=== PATIENT | female | born 2000 | race Caucasian/White ===

== ENCOUNTER 2024-06-01 08:57 | Outpatient (OUT) | payer OTHER, SELFPAY ==
--- NOTE | 2024-06-01 09:09 | ECG_ITS ---
[facility] Test Date: 2024-06-01 Pat Name: JOS TAYLOR Department: Room: - Gender: Female Cushion Former: : 2000 Requested By: ESTEFANIA ABDI Order Number: [id number] Kelly MD: NATALIYA JOYCE M.D. Measurements Intervals [place] Rate: 66 P: 11 WA: 148 QRS: 7 QRSD: 98 T: 3 QT: 389 QTc: 409 Interpretive Statements SINUS RHYTHM INCOMPLETE RIGHT BUNDLE BRANCH BLOCK [90+ ms QRS DURATION, TERMINAL R IN V1/V2, 40+ ms S IN I/aVL/V4/V5/V6] No previous ECG available for comparison Electronically Signed On 06-01-2024 19:08:50 EDT by NATALIYA JOYCE M.D.
== END 2024-06-01 08:58 | disposition home or self-care (01) ==
LOC: PST 09:02
PROVIDERS: PCP Family Medicine; Visit Provider Obstetrics & Gynecology
DX: Z01.810 Encounter for preprocedural cardiovascular examination (principal); R10.2 Pelvic and perineal pain; N80.9 Endometriosis, unspecified
CPT/HCPCS: 93005

== ENCOUNTER 2024-06-17 10:38 | Day surgery (SDC) | payer OTHER, SELFPAY ==
[2024-06-01 09:38] VITALS: BP 121/87; PULSE 75; TEMP 36.3; O2SAT 99; BMI 32.8
[2024-06-17] VITALS (8 sets, daily range): BP systolic 102–130; BP diastolic 67–87; PULSE 68–95; TEMP 36.1–36.6; O2SAT 96–99; BMI 32.8
[2024-06-17 10:55] LABS: Basophils Percent Auto 0.5 % (0.2-2.0); Eosinophils Absolute Auto 0.1 10^3/uL (0.0-0.7); Eosinophils Percent Auto 1.4 % (0.9-7.0); Hematocrit 46.5 % (36.0-48.0); Immature Granulocytes Abs Auto 0.03 10^3/uL (0.00-0.03); Immature Granulocytes Pct Auto 0.4 % (0.0-0.5); Lymphocytes Absolute Auto 2.1 10^3/uL (1.2-3.8); Lymphocytes Percent Auto 25.1 % (20.5-60.0); Mean Corpuscular HGB Conc 34.4 g/dL (29.9-35.2); Mean Corpuscular Hemoglobin 30.8 pg (26.7-34.0); Mean Corpuscular Volume 89.4 fL (81.0-99.0); Monocytes Absolute Auto 0.5 10^3/uL (0.3-0.8); Monocytes Percent Auto 6.3 % (1.7-12.0); Neutrophils Absolute Auto 5.6 10^3/uL (1.4-6.5); Neutrophils Percent Auto 66.3 % (43.0-75.0); Platelet Count 293 10^3/uL (150-450); Red Cell Distribution Width 11.7 % (11.0-15.0); White Blood Count 8.4 10^3/uL (4.0-11.0)
--- OUTSIDE RECORDS SUMMARY | 2024-06-17 10:59 | XMS_ITS ---
Author Name Auto Generated Organization OHIP Care Team Providers Care Avid Editor Name Role Phone LINDA SMITH Attending Unavailable ESTEFANIA ABDI Attending Unavailable LINDA SMITH Attending Unavailable LINDA SMITH Attending Unavailable Torrie Peres Primary Care Unavailable Jewel Cunha Admitting Unavailable Jewel Cunha Attending Unavailable Linda Smith Admitting Unavailable Linda Smith Attending Unavailable Torrie Peres Primary Care Unavailable TORRIE PERES Primary Care Unavailab le ROSALINA PERESRA D Referring Unavailab le BOB, MAICOL B Attending Unavailable BOB, MAICOL B Attending Unavailable BBO, MAICOL B Referring Unavailable TORRIE PERES Primary Care Unavailab le PROBLEMS DATE TYPE CONDITION / CODE ATTENDING STATUS TITO RCE 12/18/2023 Unknown Pelvic and perin eal pain / R10.2(ICD-10) Linda Smith [facility] 09/13/2023 Unknown Other ovarian cy st, left side / N83.292(ICD-10) Jewel Cunha [facility] PROCEDURES No Procedure Records Found RESULTS N-TERMINAL PRO B-TYPE NATRIURETIC PEPTIDE Collected: 06/16/2024 11:45 AM Status: F Source: [facility] REPOSITORY Order Comment: Release to me tient->Automatic TYPE CODE TESTS RESULT OUT OF RANGE REFERENCE UNITS LAB 00141-2 NT pro B-type Natriuretic Peptide 116.0 Unknown 0.0-125.0 pg/mL LIPID PANEL Collected: 06/16/2024 11:45 AM Status: F Source: [facility] REPOSITORY Order Comment: Release to me tient->Automatic TYPE CODE TESTS RESULT OUT OF RANGE REFERENCE UNITS LAB 2093-3 Cholesterol 202 High <=189 mg/dL Result Comment: Acceptable ( mg/dL): <190 Borderline-High (mg/dL): 190-224 High (mg/dL): > or = 225 Reference: Recommendations of the [place] [employer] (Pediatrics, Feb 2011, 128 (Supplement 5) Q965-M656; DOI: 10.1542/peds.2009-2107C). Verified By: [id number] LAB 2571-8 Triglyceride 68 Unknown <=114 mg/dL Result Comment: Acceptable ( mg/dL): <115 Borderline-High (mg/dL): 115-149 High (mg/dL): > or = 150 Verified By: [id number] LAB 2085-9 HDL Chol 65 Unknown MG/DL Result Comment: Low (mg/dL): <40 Borderline-Low (mg/dL): 40-45 Acceptable (mg/dL): >45 Verified By: [id number] LAB 06728-9 LDL Cholesterol 123 High <=119 mg/dL Result Comment: Verified By: [id number] LAB 59017-9 Non-HDL Cholesterol 137 Unknown <=149 mg/dL Result Comment: Verified By: [id number] COMPREHENSIVE METABOLIC PANEL Collected : 06/16/2024 11:45 AM Status: F Source: [facility] REPOSITORY Order Comment: Release to me whitney->Automatic TYPE CODE TESTS RESULT OUT OF RANGE REFERENCE UNITS LAB 2951-2 Sodium 140 Unknown 133-145 mmol/L Result Comment: Verified By: [id number] LAB 79938-1 POTASSIUM 4.6 Unknown 3.3-5.1 mmol/L Result Comment: Verified By: [id number] LAB 2075-0 CHLORIDE 103 Unknown 96-108 mmol/L Result Comment: Verified By: [id number] LAB 1962-0 CARBON DIOXIDE 28.8 Unknown 22.0-29.0 mmol/L Result Comment: Verified By: [id number] LAB 2345-7 GLUCOSE 92 Unknown 70-99 mg/dL Result Comment: Criteria for Diagnosis of Diabetes: Fasting Specimen (no caloric intake for at least 8 hours): <100 mg/dL Normal 100-125 mg/dL Increased risk for Diabetes >125 mg/dL Diagnostic for Diabetes Random Glucose (any time of day without regard to last meal): > or = 200 mg/dL plus Classic Symptoms of Diabetes Verified By: [id number] LAB 1975-2 BILI,TOTAL 0.5 Unknown <=1.0 mg/dL Result Comment: Verified By: [id number] LAB 15158-0 AST 21 Unknown <=31 U/L Result Comment: Verified By: [id number] LAB 1743-4 ALT 19 Unknown <=34 U/L Result Comment: Verified By: [id number] LAB 6768-6 Alkaline Phosphatase 41 Unknown 35-104 U/L Result Comment: Verified By: [id number] LAB 55854-9 CALCIUM 9.7 Unknown 7.6-11.0 mg/dL Result Comment: Verified By: [id number] LAB 2885-2 Protein, Total 7.3 Unknown 5.9-8.4 g/dL Result Comment: Verified By: [id number] LAB 47918-9 Albumin 4.3 Unknown 3.5-5.0 g/dL Result Comment: Verified By: [id number] LAB 2160-0 Creatinine 0.81 Unknown 0.50-1.00 mg/dL Result Comment: Verified By: [id number] LAB 80833-9 eGFR >90 Unknown >=60 mL/min/1 .73 m2 LAB 3094-0 BUN 13 Unknown 4-19 mg/dL Result Comment: Verified By: [id number] PROGRESS NOTE Observed: 06/16/2024 10:00 AM Status: COMPLETED Source: [facility] REPOSITORY Adult Congenital Heart Disea se Referring Provider: Torrie Peres,* Date: 06/16/2024 Original Diagnosis/History of Present Illness: Jos Beckett is a 23 y.o. 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 By report, she also has a functionally bicuspid aortic valve. She has not required any cardiac interventions nor required cardiac medications since infancy. She does have a history of premature ventricular complexes, with a ~ 1% PVC burden on a Holter in 2022. Jos was previously followed in Pediatric Cardiology clinic by my colleague, Dr JR Dudley. Overall, she has had normal growth and development and no limitations from her cardiac disease. She did have some palpitations at the time her PVCs were identified, but these have not recurred. She has no history of exertional chest pain, unexplained shortness of breath, near syncope or syncope. She recently had a rupture of an ovarian cyst that has resulted in significant pain and limitations to her activity; she will be having diagnostic laparoscopy and lysis of adhesions tomorrow. Prior to that, she exercised regularly and had normal exercise tolerance. 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 History of migraine headaches. 2) Hand surgery 2020. Ruptured ovarian cyst 2023. 3) No known drug allergies. 4) Cardiac family history is notable for: great grandfather had aortic aneurysm; grandfather suddenly during sleep, was in his 30s. 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 VITAL SIGNS: BP 115/81 R arm 108/67 R leg Pulse 64 Resp 16 Ht 159.3 cm Wt 79.7 kg SpO2 100% BMI 31.41 kg/m 2. CARDIOVASCULAR: A) no jugular venous distention B) normal precordial activity, regular rate and rhythm with no ectopy or gallop audible C) normal s1, normally splitting s2; no diastolic murmurs; no clicks or rubs 3. CHEST AND RESPIRATORY: normal respiratory effort, lungs clear to auscultation; surgical incision not examined 4. ABDOMEN: limited exam due to pain 5. EXTREMITIES: no clubbing cyanosis or edema; warm and well perfused 6. GENERAL: well appearing 7. HEENT: no dysmorphic features; no central cyanosis or pallor; no facial edema 8. NEURO/PSYCH: grossly symmetrical tone and strength, no gross deficits noted, normal speech, behavior and affect Studies: EKG 06/16/2024: normal sinus rhythm at a rate of 67 bpm; left axis deviation; rSR' in V1/V2 Echocardiogram 06/16/2024: 1. Aortic valve: The valve is functionally bicuspid. There is mild regurgitation. 2. Systemic arteries: The isthmus narrows in the descending aorta to .96 cm; and the Doppler shows diastolic runoff. The defending pulsatility is diminished. 3. S/p coarctation surgery residual peak gradient 16-20 mmHg 4. Left ventricle: The cavity size is normal. Wall thickness is normal. The ejection fraction (MM, Teichholz) is 63%. 5. Redundant mitral valve chordae with trace mitral valve regurgitation. 24 hour Holter monitor: to be done after surgery Impression: 1) Coarctation of the aorta, s/p repair, no aortic obstruction or edwin re-coarctation, mild residual gradient stable at < 20% 2) Bicuspid aortic valve, mild regurgitation; no aortic root enlargement; no left ventricular dilatation or dysfunction 3) History of premature ventricular complexes, none seen or auscultated today 4) No clinical heart failure, NYHA Class I Classification per 2018 ACC ACHD guidelines: IIA CHD anatomy: II, moderate complexity CHD physiology: A (no hemodynamic or anatomic sequelae) Plan: No cardiac contraindications to general anesthesia or surgery Cardiac surgery/re-intervention: not indicated Cardiac medications: none indicated Additional cardiac testin hour Holter monitor (schedule after her surgery); blood tests (NTproBNP, comp metabolic, lipid panel Cardiac restrictions to exercise, sports or employment: none SBE prophylaxis not indicated Additional consultation: not indicated Next follow up visit: 2-[address] scan within next 3-5 years. Maicol Chandler M.D. Adult Congenital Heart Disease, [facility], [facility] Counseling and/or coordination of care was greater than 55 minutes which is more than 50% of the total time of 70 minutes spent on the encounter. US PELVIC COMPLETE Observed: 12/18/2023 11:01 AM Status: COMPLETED Source: [facility] REPOSITORY [facility] [place] [address] Ultrasound Report Signed Patient: Jos Beckett MR#: [id number] : 2000 Acct:[id number] Age/Sex: 23 / F ADM Date: 12/18/23 Loc: Room: Type: [facility] Attending Dr: Linda Smith PA-C Ordering Provider: Linda BRAND Date of Service: 12/18/23 US/US pelvic complete: Z87.42 ([id number]) US/US transvaginal: Z87.42 Copies to: Linda BRAND Pelvic ultrasound. Reason for exam: Right-sided pelvic/low back pain for months. Comparison: Pelvic ultrasound 09/13/2023 Technique: Transabdominal imaging of the uterus and ovaries was performed. Transvaginal imaging of the uterus and ovaries was also obtained. Additional spectral Doppler analysis of the ovaries was also obtained. Findings: Uterus measures 6.5 x 2.8 x 3.9 cm. No measurable fibroid is seen. Endometrium measures 7 mm without focal abnormality. Right ovary measures 4.0 x 1.5 x 1.6 cm. Left ovary measures 4.1 x 1.8 x 3.0 cm. Normal arterial and venous Doppler waveforms. No adnexal mass. Trace free fluid. US/US transvaginal Impression: No acute findings. Impression dictated by: Ayad Syed Jr., D.O.12/18/2023 11:05 AM Dictation Location: [place] [address] Tech: Nilda James Transcribed By: ERIN 12/18/23 1105 Dictated By: Ayad Syed Jr, DO 12/18/23 1101 Signed By: <Electronically signed by Ayad Syed Jr, DO in OV> 12/18/23 1105 US PELVIC COMPLETE Observed: 09/14/2023 9:20 AM Status: COMPLETED Source: [facility] REPOSITORY [facility] [place] [address] Ultrasound Report Signed Patient: Jos Beckett MR#: [id number] : 2000 Acct:[id number] Age/Sex: 22 / F ADM Date: 09/13/23 Loc: ER Room: Type: [facility] ER Attending Dr: Ordering Provider: Jewel Cunha MD Date of Service: 09/14/23 US/US pelvic complete: ABDOMINAL PAIN ([id number]) US/US transvaginal: PAIN Copies to: Jewel Cunha MD Pelvic ultrasound. Reason for exam: Sharp abdominal pain and bloating. Comparison: none Technique: Transabdominal imaging of the uterus and ovaries was performed. Transvaginal imaging of the uterus and ovaries was also obtained. Additional spectral Doppler analysis of the ovaries was a lso obtained. Findings: Uterus measures 7.9 x 3.3 x 4.8 cm. No fibroid. Endometrium measures 15 mm without focal abnormality. Small moderate free fluid is noted. Right ovary measures 2.7 x 2.0 x 2.0 cm. Left ovary measures 4.2 x 3.1 x 3.6 cm. Normal arterial and venous Doppler waveforms. No adnexal mass. US/US transvaginal Impression: No acute findings. Impression dictated by: Ayad Syed Jr., D.O.09/14/2023 9:22 AM Dictation Location: [place] [address] Tech: Luann Griffin Transcribed By: ERIN 09/14/23921 Dictated By: Ayad Syed Jr, DO 09/14/23 09 Signed By: <Electronically signed by Ayad Syed Jr, DO in OV> 09/14/23921 URINALYSIS Collected: 11:10 PM Status: F Source: [facility] REPOSITORY Order Comment: Name Collecti on Type:: Clean-Voided Midstream TYPE CODE TESTS RESULT OUT OF RANGE REFERENCE UNITS LAB UCOL Color,Urine Light-Yellow Yellow LAB UAPP Appearance,Ur ine Clear Clear LAB USG Specificy Nash,Urine 1.017 Normal 1.001-1.030 LAB UPH pH,Urine 6.5 Normal 5.0-9.0 LAB ULE Leukocyte Esterase,Urin e Negative Negative LAB UNIT Nitrite,Urine Negative Negative LAB UPRO Protein,Urine Negative Negative LAB UGL Glucose,Urine (UA) Normal Normal LAB UKET Ketones,Urine Negative Negative LAB UURO Urobilinogen, Urine Normal Normal LAB UBIL Bilirubin,Uri ne Negative Negative LAB UBLD Occult Blood,Urine Negative Negative Performed By: #### UA, UHCG #### [address] HCG,URINE Collected: 11:10 PM Status: F Source: [facility] REPOSITORY Order Comment: Name Collecti on Type:: Clean-Voided Midstream TYPE CODE TESTS RESULT OUT OF RANGE REFERENCE UNITS LAB UHCGQ HCG Qualitative, Urine Negative Result Comment: PERFORMED BY : [place] [address] PATHOLOGIST FIELD WORKER ASIM PERAZA M.D. Performed By: #### UA, CG #### [address] COMPLETE BLOOD COUNT AUTO DIFF Collected: 09/13/2023 11:08 PM Status: F Source: [facility] REPOSITORY TYPE CODE TESTS RESULT OUT OF RANGE REFERENCE UNITS LAB WBC White Blood Count 12.0 High 3.8-11.6 10*3/uL LAB UNWBC Uncorrected WBC 12.0 High 3.8-11.6 10*3/uL LAB RBC Red Blood Count 4.61 Normal 3.60-5.00 LAB HGB Hemoglobin 14.2 Normal 11.8-15.4 g/dL LAB HCT Hematocrit 41.3 Normal 34.0-46.4 % LAB MCV Mean Corpuscular Volume 89.7 Normal 80-100 fL LAB MCH Mean Corpuscular Hemoglobin 30.9 Normal 24.7-34.3 pg LAB MCHC Mean Corpuscular HGB Conc 34.4 Normal 32.0-35.0 g/dL LAB RDW Red Cell Distribution Width 12.6 Normal 11.9-15.3 % LAB PLT Platelet Count 253 Normal 150-450 10*3/uL LAB MPV Mean Platelet Volume 8.8 Normal 6.3-10.7 fL LAB MDW Monocyte Distribution Width 16.68 Normal 0.00-20.00 % LAB NE% Neutrophils % (Auto) 61.7 . % LAB LY% Lymphocytes % (Auto) 27.7 . % LAB MO% Monocytes % (Auto) 8.1 . % LAB EO% Eosinophils % (Auto) 1.9 . % LAB BA% Basophils % (Auto) 0.6 . % LAB NRBC% NRBC% 0.2 Normal 0-0.5 /100{WBC } LAB NE# Neutrophils # (Auto) 7.4 Normal 1.8-7.7 10*3/uL LAB LY# Lymphocytes # (Auto) 3.3 Normal 1.00-4.8 10*3/uL LAB MO# Monocytes # (Auto) 1.0 High 0.0-0.8 10*3/uL LAB EO# Eosinophils # (Auto) 0.2 Normal 0.0-0.45 10*3/uL LAB BA# Basophils # (Auto) 0.1 Normal 0.0-0.2 10*3/uL Result Comment: PERFORMED BY : [place] [address] PATHOLOGIST FIELD WORKER ASIM PERAZA M.D. Performed By: #### HEPATIC, BMP, CBC #### [address] HEPATIC PANEL Collected: 09/13/2023 11:08 PM Status: F Source: [facility] REPOSITORY TYPE CODE TESTS RESULT OUT OF RANGE REFERENCE UNITS LAB TP Total Protein 6.8 Normal 6.4-8.9 g/dL LAB ALB Albumin Level 4.3 Normal 3.5-5.7 g/dL LAB GLOB Globulin 2.5 g/dL LAB AGRATIO Albumin/Globulin Ratio 1.7 LAB BILIT Bilirubin,Total 0.3 Normal 0.3-1.0 mg/dL LAB BILID Bilirubin,Direct 0.10 Normal 0.03-0.18 mg/dL LAB BILII Bilirubin,Indirect 0.2 mg/dL LAB AST Aspartate Amino Transferase 17 Normal 13-39 U/L LAB ALT Alanine Aminotransferase 13 Normal 7-52 U/L LAB ALP Alkaline Phosphatase 56 Normal 34-104 U/L Performed By: #### HEPATIC, BMP, CBC #### [facility] [address] [place] [id number] [facility] BASIC METABOLIC PANEL Collected: 2023 11:08 PM Status: F Source: [facility] REPOSITORY TYPE CODE TESTS RESULT OUT OF RANGE REFERENCE UNITS LAB GLU Glucose 84 Normal 70-100 mg/dL Result Comment: Random Gluco se Reference Range is dependent on time and content of last meal. Glucose of more than 200 mg/dL in a nonstressed, ambulatory subject supports the diagnosis of Diabetes Mellitus. ADA recommended reference range LAB BUN Blood Urea Nitrogen 19 Normal 7-25 mg/dL LAB CREATT Creatinine 0.87 Normal 0.60-1.20 mg/dL LAB GFReNR Estimated GFR > 60.0 LAB NA Sodium 140 Normal 136-145 mmol/L LAB K Potassium 3.5 Normal 3.5-5.1 mmol/L Result Comment: Hemolysis is present at a level that could interfere with the result. Contact lab if redraw is required LAB CL Chloride 110 High 98-107 mmol/L LAB CO2 Carbon Dioxide 24.7 Normal 21.0-31.0 mmol/L LAB GAP Anion Gap 8.8 Normal 6.0-15.0 LAB CA Calcium 9.2 Normal 8.6-10.3 mg/dL LAB CRCLPHA Creatinine Clr Calc Pharmacy 100.76 Result Comment: PERFORMED BY : [place] [id number] PATHOLOGIST FIELD WORKER ASIM PERAZA M.D. Performed By: #### HEPATIC, BMP, CBC #### [facility] [address] [place] [address] [facility] ALLERGIES DATE TYPE / CODE NAME / CODE REACTION SEVERITY SOURCE 09/13/2023 Drug Allergy/846279262(SNOM ED CT) No Known Allergies/H935250 388(RXNORM) Unknown [facility] Miscellaneous Allergy/687304235(SNOM ED CT) NO KNOWN ALLERGIES [facility] ENCOUNTERS ADMIT/DISCHARGE ACCOUNT NUMBER ADMITTING ENCOUNTER CLASS LOCATION SOURCE 06/16/2024/06/17/19 [id number] Ambulatory Building:LAB BELEM [facility] 06/16/2024/06/17/19 [id number] Ambulatory Building:[facility] T C[facility] 05/19/2024/05/20/19 [id number] Ambulatory Building:[facility] EPIC 05/10/2024/05/10/19 [id number] Ambulatory Building:[facility] 02/25/2024/02/25/20 24 [id number] Ambulatory Building:[facility] 12/29/2023/12/29/19 24 [id number] Ambulatory Building:[facility] 12/18/2023/12/18/19 24 [id number] [facility] 09/13/2023/09/14/19 24 [id number] [facility]el [facility] PAYERS ENCOUNTER GUARANTOR PAYER SUBSCRIBER SOURCE 06/16/2024 JOS DYSON: [place], [place] [address]Poa: ~(41 [phone] (HP) Primary Insurance:[employer] [facility] Number: [id number] Date: GONZALO MORE: [id number] [place] [address] [facility] 06/16/2024 Secondary Insurance:[facility] Number: [id number] Date: JOS SELMA DYSON: [id number] [place] [address] [facility] 06/16/2024 JOS SELMA KIEL: [place], [place] [address]Zlm: ~([phone] (HP) Primary Insurance:[facility] Number: [id number] Date: GONZALO MORE: [id number] [place], [place] [id number] [place] [address] 06/16/2024 Secondary Insurance:RPolicy Number: [id number] Date: JOS HAHN RALPHB: [id number] [place], [place] [address] [place] [address] 05/19/2024 JOS Pittman RALPHB: [place] [address]Fjj: (HP) Primary Insurance:[employer] M[employer]UALPolicy Number: [id number] Date:2022-09-13 GONZALO GRACEB: [id number] [address] [facility] 05/10/2024 JOS Zain RALPHB: [place] [id number]: (HP) Primary Insurance:[employer]ICAL M[employer]UALPolicy Number: [id number] Date:2022-09-13 GONZALO GRACEB: [id number] [address] [facility] 02/25/2024 JOS Zain RALPHB: [place] [id number]: (HP) Primary Insurance:[employer]ICAL M[employer]UALPolicy Number: [id number] Date:2022-09-13 GONZALO GRACEB: [id number] [place] [id number] [facility] EPIC 12/29/2023 JOS ROSASB: [place] [address]Ink: (HP) Primary Insurance:MEDICAL MUTUALPolicy Number: [id number] Date:2022-09-13 GONZALO GRACEB: [id number] [place] [address] [facility] EPIC 12/18/2023 Jos Saldivar [place] [id number]: () Primary Insurance:[facility] EmployeesPolicy Number: [id number] Date:[id number] [id number] [place] [address]KO: Gonzalomimi More: [id number] [place] [address]Wnk: () [facility] 12/18/2023 Secondary Insurance:Self PayPolicy Number: Effective Date:2023-12-16 [facility] 09/13/[address] [place] [address]Zkk: () Primary Insurance:[facility] EmployeesPolicy Number: [id number] Date:[id number] [id number] [place] [address]YQ: Gonzalo GraceB: [id number] [place] [address]Edn: () [facility] 09/13/2023 Secondary Insurance:Self PayPolicy Number: Effective Date:2023-09-13 [facility]
[2024-06-17 11:09] LABS: HCG Quantitative <1 mIU/mL
[2024-06-17] MEDS: LACTATED RINGER'S SOLUTION 1,000 ML 50 ML IV ×2 (12:05→13:10)
[2024-06-17] MEDS: CEFAZOLIN SODIUM/DEXTROSE,ISO 2 GM/50 ML PIGGYBACK IV (13:56)
--- NOTE | 2024-06-17 14:46 | PM.ONB ---
Brief Operative Note Date of procedure: 06/17/24 Pre-op diagnosis general: pelvic pain Post-op diagnosis: same as pre-op Procedure: NAME OF PROCEDURE: [diagnostic laparoscopy ] PROCEDURE: The patient was taken back to the Operating Room where she was placed in dorsal lithotomy position after given general anesthesia. The patient was prepped and draped in normal sterile fashion. A sponge stick was placed into the patient's vagina. Attention was turned to the patient's abdomen, where a small umbilical incision was made. The fascia was tented using Qasim clamps and the fascia was entered sharply. Confirmation of intraabdominal placement of the 10 mm port was confirmed under direct visualization using a laparoscope. The patient's abdomen was then insufflated using CO2 gas with approximately 4 liters. A second port was placed left laterally, this was done under direct visualization with a 5 mm port. Survey of the patient's abdomen demonstrated normal liver and gallbladder. Survey of the patient's pelvic anatomy demonstrated normal appearing rt and lt ovary and tubes as well as normal appearing uterus. No endometrial implants could be noted, no evidence of any pelvic disease was seen, normal appearing pelvic cavity. All instruments were removed from the patient's abdomen. The patient's abdomen was deinsufflated of CO2 gas. The patient tolerated the procedure well. Sponge stick was removed from the patient's vagina. The patient's infraumbilical fascia was closed using #0 Vicryl on a GI needle. The patient's skin was closed laterally and infraumbilically using 4-0 Vicryl. The patient tolerated the procedure well. Sponge, lap and needle counts were correct x 2. The patient was taken to Recovery Room in stable condition. Anesthesia: KEITH Surgeon: Jimmy Perez Cyanide Furnace Operator: Sofia Florian Estimated blood loss (mL): 5 Pathology: none sent Condition: stable Disposition: PACU Urinary Catheter Management Urinary Catheter Management Urethral: Cath placed during this visit: no
--- NOTE | 2024-06-17 16:18 | PC.NURSE ---
c/o right shoulder pain
--- NOTE | 2024-06-17 16:20 | PC.NURSE ---
Up to bathroom and voids clear yellow without difficulty
== END 2024-06-17 16:21 | disposition home or self-care (01) ==
PROVIDERS: PCP Family Medicine; Visit Provider Obstetrics & Gynecology
PROC: (CPT 840; principal; 2024-06-17 12:15)
DX: R10.2 Pelvic and perineal pain (principal); N80.9 Endometriosis, unspecified
CPT/HCPCS: 49320; 36415; 84702; 85025; J0690; J1100; J1885; J2250; J2405; J2704; J3010

== ENCOUNTER 2025-01-25 19:58 | Outpatient (REF) | payer OTHER, SELFPAY ==
--- OUTSIDE RECORDS SUMMARY | 2025-01-25 14:00 | XMS_ITS | Encounter Summary ---
Author Organization [facility] Address [address] [facility] [place] [place] [address] Care Team Providers Care Manager Care Name Role Phone Nereiday Torrie Terrazas DO Primary Care Provider Linda Cisneros Unavailable Reason for Visit * ReasonCommentsGynecologic Exam Encounter Details DateTypeDepartmentCare Team (Latest Contact Info)Lgfalzhgccd36/12/2025 2:00 PM ESTProcedure Visit [facility] [address] [place] [address] Linda Cisneros PA [address] [place], [facility]11 control counseling (Primary Dx); Well woman exam with routine gynecological exam Social History Tobacco UseTypesPacks/DayYears UsedDateSmoking Tobacco: NeverSmokeless Tobacco: NeverAlcohol UseStandard Drinks/WeekCommentsNever0 (1 standard drink = 0.6 oz pure alcohol)caffeine: coffee 1-2 cups a dayAUDIT-CAnswerDate RecordedQ1: How often do you have a drink containing alcohol?Monthly or less11/05/2022Q2: How many drinks containing alcohol do you have on a typical day when you are drinking?1 or Q3: How often do you have six or more drinks on one occasion?Never11/05/2022CommentsNoSex and Gender InformationValueDate RecordedSex Assigned at BirthNot on fileLegal OjaQjirbc69/ 10:59 PM EDT Gender IdentityNot on fileSexual OrientationNot on fileOccupationIndustryJob Start DateJob End 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 female who presents for Gynecologic Exam Patient presents today for Annual Exam. MEDICATIONS No current outpatient medications ALLERGIES Allergies Allergen Reactions Maxalt [Rizatriptan] Palpitations Topiramate Other Reaction(s): Hair loss PROBLEMS Active Ambulatory Problems Diagnosis Date Noted Bicuspid aortic valve determined by imaging ([facility]) 10/23/2022 Incomplete RBBB 10/23/2022 Migraine with aura, not intractable, without status migrainosus 10/23/2022 Heart palpitations 10/23/2022 Resolved Ambulatory Problems Diagnosis Date Noted No Resolved Ambulatory Problems Past Medical History: Diagnosis Date Anxiety 04/22/2022 Congenital bicuspid aortic valve ([facility]) 2001 History of asthma Hx of viral meningitis 2001 Migraine headache without aura S/P repair of coarctation of aorta 2001 HISTORY PAST MEDICAL HISTORY SOCIAL HISTORY Past Medical History: Diagnosis Date Anxiety 04/22/2022 Prescribed Venlafaxine Congenital bicuspid aortic valve ([facility]) 2001 Follows with Office Services Associate- Dr Forte History of asthma used an inhaler as a child, but no sx in years Hx of viral meningitis 2001 as a Migraine headache without aura Prescribed Maxalt S/P repair of coarctation of aorta 2001 Done at 10 days old. Minimal regurg present. Follows with Office Services Associate- Dr Forte Social History Tobacco Use Smoking status: Never Smokeless tobacco: Never Substance Use Topics Alcohol use: Never Comment: caffeine: coffee 1-2 cups a day Drug use: Never FAMILY HISTORY Family History Problem Relation Name Age of Onset No Known Problems Mother Hypertension Father No Known Problems Sister SURGICAL HISTORY Past Surgical History: Procedure Laterality Date CARDIAC SURGERY 2001 repair of coarctation of the aorta done at 10 days old FINGER SURGERY Right 11/2020 Fusion right 5th finger LAPAROSCOPY DIAGNOSTIC / BIOPSY / ASPIRATION / LYSIS 06/2024 Dr Perez ([facility]ICATION[employer] SPECIALIST) ORIF FINGER FRACTURE Left 05/2019 Left pinky finger REVIEW OF SYSTEMS Review of Systems: Review of Systems Constitutional: Negative. HENT: Negative. Eyes: Negative. Respiratory: Negative. Cardiovascular: Negative. Gastrointestinal: Negative. Genitourinary: Negative. Musculoskeletal: Negative. Skin: Negative. Neurological: Negative. All other systems reviewed and are negative. Hematological: Negative. Endocrine: Negative. Allergic/Immunologic: Negative. OBJECTIVE Objective: Physical Exam Constitutional: Appearance: Normal appearance. She is well-developed. Genitourinary: Vulva normal. Right Adnexa: not tender and no mass present. Left Adnexa: not tender and no mass present. No cervical discharge. Breasts: Breasts are soft. Right: Normal. Left: Normal. HENT: Head: Normocephalic. Nose: Nose normal. Mouth/Throat: Mouth: Mucous membranes are moist. Cardiovascular: Rate and Rhythm: Normal rate and regular rhythm. Pulmonary: Effort: Pulmonary effort is normal. Breath sounds: Normal breath sounds. Abdominal: General: Bowel sounds are normal. There is no distension. Palpations: Abdomen is soft. Tenderness: There is no abdominal tenderness. There is no guarding or rebound. Musculoskeletal: General: No swelling. Normal range of motion. Cervical back: Normal range of motion. Right lower leg: No edema. Left lower leg: No edema. Neurological: General: No focal deficit present. Mental Status: She is alert and oriented to person, place, and time. Skin: General: Skin is warm and dry. Psychiatric: Mood and Affect: Mood normal. Behavior: Behavior normal. Vitals and nursing note reviewed. Exam conducted with a machine operator picker present. Vitals: Estimated body mass index is 30.82 kg/m?? as calculated from the following: Height as of this encounter: 5' 3 . Weight as of this encounter: 174 lb. BP: 120/72 Patient's last menstrual period was 01/12/2025 (approximate). Assessment/Plan ICD-10-CM 1. Well woman exam with routine gynecological exam Z01.419 Pap Smear Assessment/Plan Annual Exam: Patient presents today for her first annual exam. Patient states she is doing well and has no complaints. Pap was obtained without difficulty. No orders of the defined types were placed in this encounter. Patient has stopped taking her oral b/c due to making her feel really ill. Pt would like to discussother b/c options instead of the oral b/c. Follow Up: Patient is to return in one year for annual unless needed otherwise. Documented by Meenakshi Isaac MA on behalf of: OLIVIA Kaiser documented in this encounter Plan of Treatment NameTypePriorityAssociated DiagnosesOrder SchedulePap SmearPathology and CytologyRoutine Well woman exam with routine gynecological exam Ordered: 01/25/2025documented as of this encounter Visit Diagnoses Diagnosis control counseling- Primary Well woman exam with routine gynecological exam Routine gynecological examination documented in this encounter Care Teams Team MemberRelationshipSpecialtyStart DateEnd Date Constantin-Torrie Em DO [address] [facility] [address] [place] [address] PCP - GeneralInternal Medicine07/22/22 Linda Cisneros PA [address] [place] [address] [place] [address] PCP - Medical [place] [employer]03/16/2411 Dr. Forte Consulting PhysicianCardiology11/05/17documented as of this encounter
--- OUTSIDE RECORDS SUMMARY | 2025-01-25 20:01 | XMS_ITS | CCD ---
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 Eosinophils/100 WBC (Bld)1.9 %Normal.[facility] District HospitalComment on above:Performed By: #### HEPATIC, BMP, CBC #### [facility] [address] [place] [address] USAAutomated eosinophil countOrdered By: Jewel Cunha on 20-26-5065Eiynawzjtae (Bld) [#/Vol]0.2 10*3/uLNormal0.0-0.45[facility] HospitalComment on above:Performed By: #### HEPATIC, BMP, CBC #### [place] [address] USAAutomated monocyte %Ordered By: Jewel Cunha on 09-13-2023 Monocytes/100 WBC (Bld)8.1 %Normal.[facility] District HospitalComment on above:Performed By: #### HEPATIC, BMP, CBC #### [place] [address] USAAutomated neutrophil %Ordered By: Jewel Cunha on 09-13-2023 Neutrophils/100 WBC (Bld)61.7 %Normal.[facility] District HospitalComment on above:Performed By: #### HEPATIC, BMP, CBC #### [place] [address] USABasic Metabolic Panelon 84-50-5011Oowfkektin Clr Calc Baac[address] [place] [address] Physician GroupComment on above:Result Comment: PERFORMED BY: [place] [address] PATHOLOGIST DAIRY NUTRITION SPECIALIST ASIM PERAZA M.D.Performed By: #### HEPATIC, BMP, CBC #### [place] [address] USAGFR/1.73 sq M.predicted MDRD (S/P/Bld) [Vol rate/Area] mL/min/{1.73_m2}NormalThe Atrium Health Anson Physician GroupComment on above:Performed By: #### HEPATIC, BMP, CBC #### [place] [address] USABilirubin Test strip Ql (U)Ordered By: Jewel Cunha on 28-67-2763Rwmwffoot Ql (U)NegativeNegativeHighland District Hospital Bilirubin.direct [Mass/volume] in Serum or PlasmaOrdered By: Jewel Cunha on 04-06-5362Jcledjbuc.direct [Mass/Vol]0.10 mg/dL0.03-0.18FOhio State East HospitalBilirubin.total [Mass/volume] in Serum or PlasmaOrdered By: Jewel Cunha on 66-60-5224Isgrhuclu [Mass/Vol]0.3 mg/dLNormal0.3-1.0High[facility] HospitalComment on above:Performed By: #### HEPATIC, BMP, CBC #### [facility] [address] [id number] USACalcium [Mass/volume] in Serum or PlasmaOrdered By: Jewel Cunha on 06-91-1144Hhftozj [Mass/Vol]9.2 mg/dLNormal8.6-10.3FOhio State East HospitalComment on above:Performed By: #### HEPATIC, BMP, CBC #### [facility] [address] [id number] USACarbon dioxide, total [Moles/volume] in Serum or Plasma Ordered By: Jewel Cunha on 13-05-8216DU9 [Moles/Vol]24.7 mmol/ZGdewsk16.0-31.0 [facility] HospitalComment on above:Performed By: #### HEPATIC, BMP, CBC #### [facility] [address] [place] [address] USAChloride [Moles/volume] in Serum or PlasmaOrdered By: Jewel Cunha on 45-73-4383Zcppaizo [Moles/Vol]110 mmol/ZNdvm70-162IsqsihlyyHighland District HospitalComment on above:Performed By: #### HEPATIC, BMP, CBC #### [facility] [address] [place] [address] USAColor of Urine by AutoOrdered By: Jewel Cunha on 09-13-2023 Color (U)Light-yellowNormalYMercy Health – The Jewish HospitalComment on above:Order Comment: Name Collection Type:: Clean-Voided MidstreamPerformed By: #### UA, UHCG #### [facility] [address] [place] [address] USAComplete Blood Count Auto Diffon 88-49-7537Tbrc Corpuscular HGB Conc34.4 g/pNPjcytq56.0-35.0The [facility]son Physician GroupComment on above:Performed By: #### HEPATIC, BMP, CBC #### [facility] [address] [place] [address] USAMonocytes/100 WBC (Bld)16.68 %Normal0.00-20.00The [facility]son Physician GroupComment on above:Performed By: #### HEPATIC, BMP, CBC #### [facility] [address] [place] [address] USANRBC%0.2 /100{WBC}Normal0-0.5The [facility] Comment on above:Performed By: #### HEPATIC, BMP, CBC #### [place] [address] USACreatinine [Mass/volume] in Serum or PlasmaOrdered By: Jewel Cunha on 67-91-3782Zwlnzfpnsz [Mass/Vol]0.87 mg/dLNormal0.60-1.20[facility] HospitalComment on above:Performed By: #### HEPATIC, BMP, CBC #### [place] [address] USAErythrocyte distribution width [Ratio] by Automated count Ordered By: Jewel Cunha on 93-78-9076Sxjecxebcci distribution width (RBC) [Ratio] 12.6 %Qzkaek02.9-15.3FOhio State East HospitalComment on above:Performed By: #### HEPATIC, BMP, CBC #### [facility] [address] [place] [address] USAErythrocytes [#/volume] in Blood by Automated countOrdered By: Jewel Cunha on 96-47-2693TIV (Bld) [#/Vol]4.61 10*6/uLNormal3.60-5.00 [facility] HospitalComment on above:Performed By: #### HEPATIC, BMP, CBC #### [facility] [address] [place] [address] USAGlucose [Mass/volume] in Serum or PlasmaOrdered By: Jewel Cunha on 16-52-6853Balnsnz [Mass/Vol]84 mg/xNYwcwmd57-305IltttaodkHighland District HospitalComment on above:ADA recommended reference rangeRandom Glucose Reference Range is dependent on time and content of last meal. Glucose of more than 200 mg/dL in a nonstressed, ambulatory subject supports the diagnosisof Diabetes Mellitus.Result Comment: Random Glucose Reference Range is dependent on time and content of last meal. Glucose of more than 200 mg/dL in a nonstressed, ambulatory subject supports the diagnosis of Diabetes Mellitus. ADA recommended reference rangePerformed By: #### HEPATIC, BMP, CBC #### [facility] [address] [place] [address] USAGlucose [Mass/volume] in Urine by Test stripOrdered By: Jewel Cunha on 27-22-1037Lffsxyk Test strip (U) [Mass/Vol]Normal mg/dLNormal [facility] HospitalHCG ( test) IA.rapid Ql (U)Ordered By: Jewel Cunha on 42-27-4630ZFA ( test) Ql (U)NegativeHighland District HospitalHCG,Urineon 89-20-1219Jjpl HCG ( test) Ql (U)Negative NormalThe Atrium Health Anson Physician GroupComment on above:Order Comment: Name Collection Type:: Clean-Voided MidstreamResult Comment: PERFORMED BY: [place] [address] PATHOLOGIST DAIRY NUTRITION SPECIALIST ASIM PERAZA M.D.Performed By: #### UA, UHCG #### [address] [address] USAHematocrit [Volume Fraction] of Blood by Automated count Ordered By: Jewel Cunha on 16-68-5897Ofenkzndyj (Bld) [Volume fraction]41.3 % Dhjzqx31.0-46.4FOhio State East HospitalComment on above:Performed By: #### HEPATIC, BMP, CBC #### [facility] [address] [place] [address] USAHemoglobin Test strip Ql (U)Ordered By: Jewel Cunha on 88-75-0821Ubqrwauyya Ql (U)NegativeNegFulton County Health Center Hemoglobin [Mass/volume] in BloodOrdered By: Jewel Cunha on 00-64-9424Qwrdpglohw (Bld) [Mass/Vol]14.2 g/hGNeeizc91.8-15.4FOhio State East HospitalComment on above:Performed By: #### HEPATIC, BMP, CBC #### [facility] [address] [place] [address] USAHepatic Panelon 76-89-8180Rmnrxuf [Mass/Vol]4.3 g/dLNormal 3.5-5.7The [facility] Physician GroupComment on above:Performed By: #### HEPATIC, BMP, CBC #### [facility] [address] [place] [address] USABilirubin,Indirect0.2 mg/dLNormalThe Wayne Memorial HospitalComment on above:Performed By: #### HEPATIC, BMP, CBC #### [facility] [address] [place] [address] USABilirubin.indirect [Mass/Vol]0.10 mg/dLNormal0.03-0.18The [facility] Physician [facility] Medical CenterComment on above:Performed By: #### HEPATIC, BMP, CBC #### [facility] [address] [place] [address] USAKetones [Presence] in Urine by Test stripOrdered By: Jewel Cunha on 59-02-8364Fxekqkg Ql (U)NegativeNormalNegFulton County Health CenterComment on above:Order Comment: Name Collection Type:: Clean- Voided MidstreamPerformed By: #### UA, UHCG #### [facility] [address] [place] [address] USALeukocyte esterase [Presence] in Urine by Test strip Ordered By: Jewel Cunha on 81-19-3586Xqduobzep esterase Test strip Ql (U)Negative NormalNegFulton County Health CenterComment on above:Order Comment: Name Collection Type:: Clean-Voided MidstreamPerformed By: #### UA, UHCG #### [facility] [address] [place] [address] USALeukocytes [#/volume] corrected for nucleated erythrocytes in Blood by Automated counOrdered By: Jewel Cunha on 58-62-9708SHZ corrected for nucl RBC Auto (Bld) [#/Vol]12.0 10*3/uLHigh3.8-11.6FOhio State East HospitalLeukocytes [#/volume] in Blood by Automated countOrdered By: Jewel Cunha on 38-47-0941VIA (Bld) [#/Vol]12.0 10*3/uLHigh3.8-11.6FOhio State East HospitalComment on above:Performed By: #### HEPATIC, BMP, CBC #### [facility] [address] [place] [address] USALymphocytes [#/volume] in Blood by Automated countOrdered By: Jewel Cunha on 68-89-2359Jscyjsmbpwu (Bld) [#/Vol]3.3 10*3/uLNormal1.00-4.8 [facility] HospitalComment on above:Performed By: #### HEPATIC, BMP, CBC #### [facility] [address] [place], [place] [address] USALymphocytes/100 leukocytes in Blood by Automated count Ordered By: Jewel Cunha on 51-29-5248Wsnwzrwzwfw/100 WBC (Bld)27.7 %Normal. [facility] HospitalComment on above:Performed By: #### HEPATIC, BMP, CBC #### [facility] [address] [place], [place] [address] [facility] [Entitic mass] by Automated countOrdered By: Jewel Cunha on 27-72-6980LVU (RBC) [Entitic mass]30.9 dgJwwygt61.7-34.3FOhio State East HospitalComment on above:Performed By: #### HEPATIC, BMP, CBC #### [facility] [address] [place], [place] [address] [facility]EEHC Auto (RBC) [Mass/Vol]Ordered By: Jewel Cunha on 87-36-9240PEMB (RBC) [Mass/Vol]34.4 g/dL32.0-35.0High[facility] District HospitalMCV [Entitic volume] by Automated countOrdered By: Jewel Cunha on 93-50-3543TAA (RBC) [Entitic vol]89.7 aDAaflxu75-115YglvxqtwfHighland District HospitalComment on above:Performed By: #### HEPATIC, BMP, CBC #### [facility] [address] [place] [address] USAMonocyte distribution width [Entitic volume] in Blood by AutomatedOrdered By: Jewel Cunha on 13-88-7985Bvtxzdfb distribution width Auto (Bld) [Entitic vol]16.68 %0.00-20.00High[facility] District HospitalNeutrophils [#/volume] in Blood by Automated countOrdered By: Jewel Cunha on 09-13-2023 Neutrophils (Bld) [#/Vol]7.4 10*3/uLNormal1.8-7.7FOhio State East HospitalComment on above:Performed By: #### HEPATIC, BMP, CBC #### [facility] [address] [place] [address] USANitrite Test strip Ql (U)Ordered By: Jewel Cunha on 21-99-5459Xezbwhe Ql (U)NegativeNegativeHighland District HospitalNo Panel InformationOrdered By: Jewel Cunha on 87-67-6120Ytpqoxnub GFR (CKD-EPI)> 60.0 mL/MinHighland District HospitalPharmacy Creatinine Clearance (Chem 100.76Highland District HospitalNucleated erythrocytes [Presence] in Blood by Automated countOrdered By: Jewel Cunha on 78-88-9064Gqospwtjp RBC Auto Ql (Bld)0.2 /100{WBC}0-0.5FOhio State East HospitalPlatelet mean volume [Entitic volume] in Blood by Automated countOrdered By: Jewel Cunha on 09-13-2023 Platelet mean volume (Bld) [Entitic vol]8.8 fLNormal6.3-10.7FOhio State East HospitalComment on above:Performed By: #### HEPATIC, BMP, CBC #### [facility] [address] [place] [address] USAPlatelets [#/volume] in Blood by Automated countOrdered By: Jewel Cunha on 89-96-4679Pafnrlqbb (Bld) [#/Vol]253 10*3/tOPzlcuk133-682 [facility] HospitalComment on above:Performed By: #### HEPATIC, BMP, CBC #### [place] [address] USAPotassium [Moles/volume] in Serum or PlasmaOrdered By: Jewel Cunha on 13-16-3642Njgsyjhuk [Moles/Vol]3.5 mmol/LNormal3.5-5.1FOhio State East HospitalComment on above:Hemolysis is present at a level that could interfere with the result.Contact lab if redraw is requiredResult Comment: Hemolysis is present at a level that could interfere with the result. Contact lab if redraw is requiredPerformed By: #### HEPATIC, BMP, CBC #### [place] [address] USAProtein Test strip (U) [Mass/Vol]Ordered By: Jewel Cunha on 58-13-3009Qepbofl (U) [Mass/Vol]NegativeNegativeHighland District HospitalProtein [Mass/volume] in Serum or PlasmaOrdered By: Jewel Cunha on 25-49-3895Tmdgvke [Mass/Vol]6.8 g/dLNormal6.4-8.9[facility] HospitalComment on above:Performed By: #### HEPATIC, BMP, CBC #### [place] [address] USASerum globulin measurement by calculation (mass/volume) Ordered By: Jewel Cunha on 55-61-8356Pexwhvuc (S) [Mass/Vol]2.5 g/dLNoal [facility] HospitalComment on above:Performed By: #### HEPATIC, BMP, CBC #### [place] [address] USASerum or plasma albumin/globulin mass ratioOrdered By: Jewel Cunha on 34-73-7945Youbino/Globulin [Mass ratio]1.7 {ratio}NormalHighland District HospitalComment on above:Performed By: #### HEPATIC, BMP, CBC #### [place] [address] USASerum or plasma anion gap determinationOrdered By: Jewel Cunha on 99-47-5022Etmhs gap [Moles/Vol]8.8 mmol/LNormal6.0-15.0[facility] HospitalComment on above:Performed By: #### HEPATIC, BMP, CBC #### [facility] [address] [place] [address] USASerum or plasma non-glucuronidated bilirubin measurement (mass/volume)Ordered By: Jewel Cunha on 36-41-0324Yoigmyyqb.indirect [Mass/Vol] 0.2 mg/dLWVUMedicine Harrison Community Hospitalodium [Moles/volume] in Serum or PlasmaOrdered By: Jewel Cunha on 59-25-6375Yxutna [Moles/Vol]140 mmol/LNormal 136-145High[facility] District HospitalComment on above:Performed By: #### HEPATIC, BMP, CBC #### [place] [address] USASpecific gravity Test strip (U) [Rel density]Ordered By: Jewel Cunha on 41-93-0996Ksqoppzs gravity (U) [Rel density]1.0171.001-1.030 [facility] HospitalUrea nitrogen [Mass/volume] in Serum or Plasma Ordered By: Jewel Cunha on 78-63-8536Gtdx nitrogen [Mass/Vol]19 mg/dLNormal7-25 [facility] HospitalComment on above:Performed By: #### HEPATIC, BMP, CBC #### [address] [place] [address] USAUrinalysison 75-44-3581Jkmgavbif,UrineNegativeNormal NegativeThe Atrium Health Anson Physician GroupComment on above:Order Comment: Name Collection Type:: Clean-Voided MidstreamPerformed By: #### UA, UHCG #### [facility] [address] [id number] USAGlucose Ql (U)NormalNormalNormalThe [facility]son Physician GroupComment on above:Order Comment: Name Collection Type:: Clean-Voided MidstreamPerformed By: #### UA, UHCG #### [facility] [address] [address] USANitrite,UrineNegativeNormalNegativeThe [facility] Anson Physician GroupComment on above:Order Comment: Name Collection Type:: Clean-Voided MidstreamPerformed By: #### UA, UHCG #### [address] [place] [address] USAOccult Blood,UrineNegativeNormalNegativeAdventhealth Ocala Physician GroupComment on above:Order Comment: Name Collection Type:: Clean- Voided MidstreamPerformed By: #### UA, UHCG #### [place] [address] USAProtein,UrineNegativeNormalNegativeAdventhealth Ocala Physician GroupComment on above:Order Comment: Name Collection Type:: Clean-Voided MidstreamPerformed By: #### UA, UHCG #### [place] [address] USASpecificy Weems,Urine1.271Rigbbx6.001-1.030The [facility] Physician GroupComment on above:Order Comment: Name Collection Type:: Clean- Voided MidstreamPerformed By: #### UA, UHCG #### [place] [address] USAUrobilinogen,UrineNormalNormalNormalThe [facility]son Physician GroupComment on above:Order Comment: Name Collection Type:: Clean- Voided MidstreamPerformed By: #### UA, UHCG #### [place] [address] USAUrine appearanceOrdered By: Jewel Cunha on 09-13-2023 Appearance (U)ClearNoOur Lady of Mercy HospitalComment on above: Order Comment: Name Collection Type:: Clean-Voided MidstreamPerformed By: #### UA, UHCG #### [place] [id number] USAUrobilinogen Test strip (U) [Mass/Vol]Ordered By: Jewel Cunha on 85-89-8437Lfgustbkpmdb (U) [Mass/Vol]Normal mg/dLWadsworth-Rittman HospitalpH of Urine by Test stripOrdered By: Jewel Cunha on 23-43-2430lU (U)6.5 [pH]Normal5.0-9.0[facility] HospitalComment on above:Order Comment: Name Collection Type:: Clean-Voided MidstreamPerformed By: #### UA, [facility] #### [facility] [address] [place] [address] USAHAND, MIN 3 VIEWSon 87-09-2240HEFH, MIN 3 VIEWSMRN: [id number] Patient Name: JOS BECKETT STUDY: HAND MIN 3 VIEWS; Right; 03/18/2021 8:59 am INDICATION: Pain M15.2: 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 COMPARISON: None. ACCESSION NUMBER(S): [id number] ORDERING CLINICIAN: MINISTERIO CASTANEDA FINDINGS: Three views of the right hand. Fixation plate and screws at the 5th PIP joint appears intact, status post fusion. The alignment is stable. The remainder of the joint spaces are maintained. No periosteal reaction or cortical erosive changes. IMPRESSION: Status post 5th PIP fusion without change. 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 dos 9-29-21 -MA History of Present Illness Patient returns to follow-up on her right small finger PIP joint fusion which was done to treat a posttraumatic arthritic condition. Surgery performed on December 12. She reports that she has no pain. She notices a little bump over the dorsal radial aspect of the finger at the PIP joint. Her finger is obviously stiff as expected. She has some achiness with cold weather and some difficulty with heavy lifting because of her lack of mobility. Past medical history, medications, allergies, surgical history and review of systems have been reviewed with the patient. Pertinent changes are documented in the HPI. Otherwise they are unchanged when compared to last visit on January 14, 2021 Physical Examination Findings: Constitutional: Appears well-developed and well-nourished. Head: Normocephalic and atraumatic. Eyes: Pupils are equal and round. Cardiovascular: Intact distal pulses. Respiratory: Effort normal. No respiratory distress. Neurologic: Alert and oriented to person, place, and time. Skin: Skin is warm and dry. Hematologic / Lymphatic: No lymphedema, lymphangitis. Psychiatric: normal mood and affect. Behavior is normal. Musculoskeletal: Examination reveals well-healed dorsal surgical incision. No significant swelling.The surgical implant is a bit prominent over the dorsal and radial aspect of the proximal phalanx head. No skin compromise. She has stiffness at her DIP joint. Full MP joint range of motion. Review of x-rays right hand taken today demonstrate solid fusion of the PIP joint with retained surgical implant. Impression: Right small finger PIP joint arthrodesis. Plan: Overall she is done well. She has no pain and is essentially back to all of her normal activities. We discussed the possibility of hardware removal and extensor tenolysis that might improve herDIP joint mobility to a degree. At this time she has not having interest in considering any furthersurgery for this finger. She is overall very happy given where her finger was when she first presented to me. Return as needed for recurrence or progression of problems . Ministerio Castaneda MD [employer] [facility] [employer] Department of Orthopaedic Surgery Chief of Hand and Upper Extremity Surgery [facility] Dictation performed with the use of voice recognition software. Syntax and grammatical errors may exist. 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 COMPARISON: Right 5th digit radiographs 11/26/2020 ACCESSION NUMBER(S): [id number] ORDERING CLINICIAN: MINISTERIO CASTANEDA FINDINGS: Status post fusion of the 5th proximal interphalangeal joint with plate and screws. Hardware is intact without perihardware fractures or lucencies. No significant malalignment. Mild negative ulnar variance noted. Lucency in the distal radius which may represent bone graft harvest site. No significant degenerative changes. Soft tissues are within normal limits. IMPRESSION: 1. 5th PIP joint fusion without hardware complication. 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 Overall she states that she is doing very well. She is not experiencing any pain. She has slowly returned back to activity with the hand. She feels at this time she does not need any formal therapy. Examination: Well-healed surgical incisions over the dorsal aspect of the small digit and is well as right wrist. Good MP joint flexion. Finger is warm and well-perfused. Palpable distal radial pulse. Subjective sensation is normal. Review of x-rays taken today of the right hand reveal intact hardware with good healing across the PIP joint. 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 Her wounds are completely healed. We discussed slowly starting to return back to normal activity as she tolerates. I have given her a formal referral to Occupational Therapy however she at this time does not feel she needs any therapy. She may use her braceonly as needed. She will return to our office in 5 weeks for repeat x-ray of right hand. Maira Sawyer PA-C Department of Orthopaedic Surgery [facility] Dictation performed with the use of voice recognition software. Syntax and grammatical errors may exist. 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) Pain of right hand (729.5) (M79.641) Signatures Electronically signed by : Maira Sawyer PA-C; Jan 14 2021 12:01PM EST (Author) NormalUH TouchworksRadiologyon [id number] Hand 3 ViewsNormal XX-Xyoaexumdalm-Txpubg 210 Work Phone: xr Hand 3 ViewsPlease click on the link to view the study padjgzTuoaynNE-Cfdhjehuwbpj-Jhnbjl 210 Work Phone: Post Op (Orthopaedic Surgery)on 27-44-8882Nfao Op (Orthopaedic Surgery)No report was sentNormalU TouchworksPost Op (Orthopaedic Surgery)Diagnoses/Problems Assessed 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 She overall is doing well without significant pain, no other complaints today. 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 Examination: Surgical incisions are healing well without any surrounding erythema, active drainage or signs of infections. Sutures are removed today. She slight visible abnormality of the PIP joint of the right small finger. Subjective sensation is normal. Fingers are warm and well perfused. Palpable distal radial pulse. 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 We have transition her into a removable brace today.She may come out of the brace to begin to work on digital range of motion of the other digits. She should avoid any forceful activity or gripping, pinching, pulling with the right hand. At her next visit we will assess for healing and possibly return her back to working activity. She will return toour office in approximately 3 weeks for x-ray of the right hand. Patient was prescribed a contender brace for right small finger arthrodesis. The patient has weakness, instability and/or deformity of their right small finger which requires stabilization from this orthosis to improve their function. Verbal and written instructions for the use, wear schedule, cleaning and application of this item were given. Patient was instructed that should the brace result in increased pain, decreased sensation, increased swelling, or an overall worsening of their medical condition, to please contact our office immediately. Orthotic management and training was provided for skin care, modifications due to healing tissues, edema changes, interruption in skin integrity, and safety precautions with the orthosis. Maira Sawyer PA-C Department of Orthopaedic Surgery [facility] Dictation performed with the use of voice recognition software. Syntax and grammatical errors may exist. 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) Pain of right hand (729.5) (M79.641) Signatures Electronically signed by : Maira Sawyer PA-C; Dec 24 2020 11:44AM EST (Author) NormalUH TouchworksHCG URINE QUALITATIVEon 68-37-2857Mmmg HCG ( test) Ql (U)NormalCamden General HospitalComment on above:Result Comment: NEGATIVE Performed at [address] [address]OYGJ-CdM-0,INFLUENZA A/B NUCLEIC ACID TESTon 06-07-5916CYE DISCLAIMERNoHarlem Valley State HospitalComment on above:Result Comment: This test has been authorized by FDA under an EUA for use by CLIA Certified Moderate and High-Complexity laboratories and Point of Care (POC), i.e., in patient care settings operating under a CLIA Certificate of Waiver, Certificate of Compliance, or Certificate of Accreditation. This test has been authorized only for the simultaneous qualitative detection and differentiation of nucleic acid from SARS-CoV-2, influenza A virus, and influenza B virus and not for any other viruses or pathogens. This test is only authorized for the duration of the declaration that circumstances exist justifying the authorization of emergency use of in vitro diagnostic tests for the detection and/or diagnosis of COVID-19, unless the authorization is terminated or revoked sooner. Performed at [address] [address]DXN A by PCRNegativeNoCalvary HospitalFLU B by PCRNegativeElmhurst Hospital CenterARS-CoV-2 (COVID- 19) RNA LYLE+probe Ql (Unsp spec)NegativeNormalNEGLake Health SystemFINGER(S), MIN 2 VIEWSon 86-42-9341VKBNFQ(S), MIN 2 VIEWSMRN: [id number] Patient Name: JOS BECKETT STUDY: Right 5th FINGER (S) MIN 2 VIEWS; 11/26/2020 9:23 am INDICATION: small finger. COMPARISON: None. ACCESSION NUMBER(S): [id number] ORDERING CLINICIAN: MAIRA SAWYER FINDINGS: 3 screws are seen transfixing the 5th middle phalanx. There is a narrowing of the 5th proximal interphalangeal joint with subluxation. Erosive changes are seen on both sides of the 5th proximal interphalangeal joint. There may be some lucency surrounding the 2 proximal screw screws. No new fracture or dislocation is seen. IMPRESSION: Postsurgical changes in the middle phalanx with possible lucency surrounding the 2 proximal screws. Narrowing and subluxation at the 5th proximal interphalangeal joint with erosive changes on both sides of the joint. Further evaluation with CT or MR is suggested. Electronically signed by: Elaina THURMAN 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 : small finger Chief Complaint NPV right pinky finger/MB History of Present Illness Patient is a 20-year-old gpxnb-dtyx-lrlccxaf female who presents today for second opinion related to a painful deformity of her right small finger. She sustained a jamming injury to her right small finger when playing softball in April 2019. She underwent surgery in May 2019 by a surgeon in the [facility]. Following surgery she was engaged into a therapy program. She has noticed progressive deformity, loss of motion and pain. She has a difficult time using the hand for forceful activities because of limitations in the use of her small finger. She is accompanied by both of her parents. Patient's self reported past medical history, medications, allergies, surgical history, family and social history as well as a 10 point review of systems has been documented in the new patient intakeform and scanned into the patient's electronic medical record. Pertinent findings are documented inthe HPI. Physical Examination Findings: Constitutional: Appears well-developed and well-nourished. Head: Normocephalic and atraumatic. Eyes: Pupils are equal and round. Cardiovascular: Intact distal pulses. Respiratory: Effort normal. No respiratory distress. Neurologic: Alert and oriented to person, place, and time. Skin: Skin is warm and dry. Hematologic / Lymphatic: No lymphedema, lymphangitis. Psychiatric: normal mood and affect. Behavior is normal. Musculoskeletal: Right hand examination reveals healed dorsal surgical incision over the PIP joint.She has an apex ulnar deformity in the coronal plane and slight hyperextension of the PIP joint in the sagittal plane. She has full MP joint range of motion. She has excellent DIP joint range of motion. She only is able to demonstrate about 30 degrees arc of active and passive range of motion of the PIP joint. This is associated with pain. No signs of infection. Fingertip is warm perfused and sensate. Review of x-rays right hand taken today demonstrate significant posttraumatic arthritis of the small finger PIP joint. She has retained surgical implants dorsally in the middle phalanx. She has significant destruction and loss of the articular surface and subchondral bone ulnar aspect of the base of the middle phalanx resulting in the coronal plane deformity. 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 Plan: We discussed this injury. Given the degree of bone loss, her age and desired activity level Sunny not think there are any motion preserving procedures that I could perform to restore the alignment and provide functional range of motion. I do not think that implant arthroplasty should be considered in this situation. We discussed 2 potential options. Option 1 would be to perform a PIP joint arthrodesis which would put the finger in a more functional position and should lessen the pain but this will certainly be associated with motion limitations and functional loss of diaphragm builder strength from the hand from a normal hand but not from where she is now. The alternative option should fusion fail to alleviate her pain, result in appearance that she is unhappy with or if she simply would prefer to avoid fusion would be to consider a ray amputation of the small finger. We discussed both of theseoptions in detail. Patient and family unwilling to consider amputation. They do have interest in proceeding with PIP joint arthrodesis. We discussed risks, benefits, alternatives and anticipated post op course including time away from work and activities following surgical treatment for the patient's condition. This is major surgery with identifiable risks. No guarantees for success have been provided. The patient has expressed unde rstanding and has elected to pursue operative treatment. She will contact the office so that we can schedule this procedure in the near future. For Surgical Planning: Diagnosis: Right small finger PIP joint posttraumatic arthritis Procedure: Removal of hardware, PIP joint arthrodesis CPT: 94530, 42931 Anesthesia: General Duration: 1 hour Special Equipment Needed: Mini C arm, [place] Variax handset, K wires, 25-gauge stainless steel wire Medical Notes / PM / DM / PAT needed?: N/A Location: Any Initial Post Operative Visit: 2 weeks Ministerio Castaneda MD [employer] [facility] [employer] Department of Orthopaedic Surgery Chief of Hand and Upper Extremity Surgery [facility] Dictation performed with the use of voice recog (more content not included)... NormalUH TouchworksRadiologyon 84-21-2894MC Finger 2 ViewsNormal VD-Mpzmmpobriln-Dlaswu 210 Work Phone: Consultation Noteon 89-89-6442Thrpcektirrj Note [id number]:127NormalFisher Medstar Harbor HospitalHEPATITIS B SURFACE ANTIBODY, QUANTon 47-80-6350Ocwmxdjjh B Surf AB Quant <3.1Critically lowImmunity>9.9The [facility] CampusComment on above:Result Comment: Status of Immunity Anti-HBs Level Inconsistent with Immunity 0.0 - 9.9 Consistent with Immunity >9.9Performed By: #### HEPBSRF #### [facility] [address] [place] [address] Ludwin OjedaAri IMMUNITYon 97-37-6403Vetxf Abs, BnC465.0 AU/mLNormalImmune >10.9 The [facility] CampusCommunson medical center on above:Result Comment: Negative <9.0 Equivocal 9.0 - 10.9 Positive >10.9 A positive result generally indicates past exposure to Mumps virus or previous vaccination.Performed By: #### MMRIMMU #### [facility] [address] [place] [address] Ludwin KarenRubella Antibodies, IgG5.47 indexNormalImmune >0.99The [facility] CampusCommunson medical center on above:Result Comment: Non-immune <0.90 Equivocal 0.90 - 0.99 Immune >0.99Performed By: #### MMRIMMU #### [facility] [address] [place] [address] Ludwin KarenRubeola Ab, IgG>300.0NormalImmune >16.4The [facility] on above:Result Comment: Negative <13.5 Equivocal 13.5 - 16.4 Positive >16.4 Presence of antibodies to Rubeola is presumptive evidence of immunity except when acute infection is suspected.Performed By: #### MMRIMMU #### [facility] [address] [place] [address] Ludwin KarenQUANTIFERON TB GOLD PLUS (NON-INC)on 49-15-3144CwagxwhZszgdnlfvk performed.NormalThe [facility] on above:Result Comment: Performed at: O_Performed By: #### QNTTBG #### [facility] [address] [place] [address] Ludwin KarenCriteriaCommentNoKettering Health HamiltonCommunson medical center on above:Result Comment: The QuantiFERON-TB Gold Plus result is determined by subtracting the Nil value from either TB antigen (Ag) tube. The mitogen tube serves as a control for the test. Performed at: CBPerformed By: #### QNTTBG #### [facility] [address] [place] [address] Ludwin KarenMitogen Value>10.00NoKettering Health HamiltonCommunson medical center on above: Result Comment: Performed at: CBPerformed By: #### QNTTBG #### [facility] [address] [id number] Ludwin KarenNill Value0.01 IU/mLNormalMagruder Memorial HospitalComment on above: Result Comment: Performed at: CBPerformed By: #### QNTTBG #### [facility] [address] [id number] Ludwin AlbertsQuantiferon Gold PlusNegativeNormalNegativeMagruder Memorial Hospital Comment on above:Result Comment: Performed at: CBPerformed By: #### QNTTBG #### [facility] [address] [id number] Ludwin KarenTB1 Ag Value0.02 IU/mLNormalMagruder Memorial HospitalComment on above: Result Comment: Performed at: CBPerformed By: #### QNTTBG #### [facility] [address] [place], [place] [id number] Ludwin KarenTB2 Ag Value0.01 IU/mLNormalMagruder Memorial HospitalComment on above: Result Comment: Performed at: CBPerformed By: #### QNTTBG #### [facility] [address] [place] [address] Ludwin KarenVARICELLA IGG ABon 13-46-6989Xklstjqcd Zoster IgG<135Critically low Immune >165Magruder Memorial HospitalComment on above:Result Comment: Negative <135 Equivocal 135 - 165 Positive >165 A positive result generally indicates exposure to the pathogen or administration of specific immunoglobulins, but it is not indication of active infection or stage of disease.Performed By: #### VARCEL #### [facility] [address] [id number] Ludwin Lexus Vital Signs Date TimeVital SignValuePerforming OvuokkuloXvfparbu58-64-6250 08:44-0400Body mass index (BMI) [Ratio]30.91 kg/m2Linda BAKER Work Phone: [facility]wnWssfnwiwua47-14-6975 08:44-0400Body reswcp04.15 kgLinda BAKER Work Phone: [facility] LawnQhfzhqdjua31-08-6585 08:44-0400Diastolic blood capurljx72 mm[Hg]Linda BAKER Work Phone: [facility] LawnTisoezitis30-06-7243 08:44-0400Systolic blood bgzuehsi682 mm[Hg]Linda Smith PA Work Phone: [facility] LawnUwqumgvjes97-91-7004 08:23-0500Body mass index (BMI) [Ratio]31.55 kg/k1Vptse Chris DO Work Phone: [facility] LawnQbudiuiyxt98-28-9983 08:23-0500Body sglvop00.8 kg Estefania Chris DO Work Phone: [facility] LawnNrmzwijrpe60-48-2157 08:23-0500Diastolic blood mesggizt86 mm[Hg]Estefania Chris DO Work Phone: [facility] LawnNjxvvrsaba66-08-2989 08:23-0500Systolic blood eumufimc188 mm[Hg]Estefania Chris DO Work Phone: [facility] LawnWwufqtkdgo52-25-9844 09:00-0500Body mass index (BMI) [Ratio]32.06 kg/m2Linda Smith PA Work Phone: [facility] LawnAguoodbijf33-06-8859 09:00-0500Body .1 kg Linda BAKER Work Phone: [facility] LawnPrvhydrbas74-14-6663 09:00-0500Diastolic blood bveqtmeg11 mm[Hg]Linda BAKER Work Phone: [facility] LawnZcamvcrkni17-89-0957 09:00-0500Systolic blood cjwjvsol562 mm[Hg]Linda Smith PA Work Phone: [facility] LawnTfkrymkukr35-39-3355 11:51-0500Body mass index (BMI) [Ratio]31.32 kg/m2Linda Smith PA Work Phone: [facility] LawnLzsvpruiwa24-55-1125 11:51-0500Body tuclvw91.2 kg Linda BAKER Work Phone: [facility] LawnHhigbmhzrd11-69-8873 11:51-0500Diastolic blood kypgienr64 mm[Hg]Linda BAKER Work Phone: [facility] LawnHeyomikblm11-07-3111 11:51-0500Systolic blood seikzryd056 mm[Hg]Linda BAKER Work Phone: [facility] LawnJcxwdgafbl42-86-8727 08:49-0400Body niayfi713 cm Linda Redey PA Work Phone: [facility] LawnJkgpfufkiq66-00-1334 08:49-0400Body mass index (BMI) [Ratio]31.67 kg/m2Linda Redey PA Work Phone: [phone] [place], [place] [address]Ifhogldktk46-03-5784 08:49-0400Body artaeq43.1 kg Linda Redey PA Work Phone: [facility] LawnDfxhtvkpmw26-77-9775 08:49-0400Diastolic blood eevxqogl49 mm[Hg]Linda Blayne PA Work Phone: [facility] LawnJqygfpurcd31-73-0251 08:49-0400Systolic blood hesouuxj721 mm[Hg]Linda Blayne BAKER Work Phone: [facility] LawnLterpkciyj80-11-1538 01:10-0400Diastolic blood iubibxyn23 mm[Hg]DO Torrie [place] Work Phone: [facility]07-01-2024 01:10-0400 Heart rate78 /minDO Torrie [place]ian[place] Work Phone: [facility]07-01-2024 01:10-0400 Respiratory rate18 /minDO Torrie [place] Work Phone: [facility]07-01-2024 01:10-0400 SaO2% (BldA) [Mass fraction]100 %DO Torrie Killian[place] Work Phone: [facility]07-01-2024 01:10-0400 Systolic blood mioanzpj386 mm[Hg]DO Torrie [place]ian[place] Work Phone: [facility]06-30-2024 22:58-0400 Body lipvec025.48 cmDO Torrie Killian-[place] Work Phone: [facility]06-30-2024 22:58-0400 Body hydezzrytxo29 [degF]DO Torrie Peres Work Phone: [facility]06-30-2024 22:58-0400 Body oksvfa99.85 kgDO Torrie KillianCallida Energyy Work Phone: [facility]12-08-2023 16:30-0500 Body .48 cmPamelsurjit Cathy Other [employer] Other 12-08-2023 16:30-0500Body mass index (BMI) [Ratio] 32.96 kg/a9LurrarEffie Morgan Other [employer] Other 12-08-2023 16:30-0500Body uzsfzjjbrxt92.1 [degF]Effie Morgan Other [employer] Other 12-08-2023 16:30-0500Body kklyra65.74 kgEffie Morgan Other [employer] Other 12-08-2023 16:30-0500Diastolic blood jagonttr09 mm[Hg] Effie Morgan Other [employer] Other 12-08-2023 16:30-0500Respiratory rate18 /minEffie Morgan Other [employer] Other 12-08-2023 16:30-4509KtB2% (BldA) [Mass fraction]97 % Effie Morgan Other [employer] Other 12-08-2023 16:30-0500Systolic blood wpeobhqj188 mm[Hg] Effie Morgan Other [employer] Other Encounters Encounter DateEncounter TypeCare ProviderFacilityStart: 11-23-2024 End: 67-36-6617Xbmajp flowsYeny BAKER Work Phone: [facility]BGYNStart: 11-23-2024 End: 43-51-8567Dzmtdf flowsYeny BAKER Work Phone: [facility] [place] OBGYNStart: 11-23-2024 End: 14-91-6734Rwpptk outpatient visit 15 minutesAmy Blayne BAKER Work Phone: [facility] [place] OBGYNComment on above: control counselingStart: 11-23-2024 End: 04-41-5955wxhiwfzzbbAFW RAMEYNot AvailableStart: 07-21-2024 End: 01-60-3921snmzisllfuHVT B [facility] Hospitaltart: 06-17-2024 End: 48-11-9368Rorlobpfb Result EncounterCorey Chris DO Work Phone: noms External Department UnsolicitedStart: 06-17-2024 End: 12-62-0712Aybwambcx Result EncounterCorey Chris DO Work Phone: n[facility] External Department UnsolicitedStart: 06-16-2024 End: 86-82-3980Lnykueqwtz hospital visit by Leonides Chandler MD Work Phone: [facility] LabComment on above:Congenital insufficiency of aortic valve; Bicuspid aortic valve; Palpitations; Asymptomatic PVCs; Coarctation of aorta (preductal) (postductal)Start: 06-16-2024 End: 26-89-9549ssszrzmjacOCJ B [facility]AUGood Samaritan Hospitaltart: 06-16-2024 End: 73-49-7447tohhkanhsnGPA B [facility] Hospitaltart: 05-19-2024 End: 16-42-7235Ektnok flowsheetCorey Chris DO Work Phone: [facility] OBStart: 05-19-2024 End: 29-66-4006Uhfdab flowsheetCorey Chris DO Work Phone: [facility] OBStart: 05-19-2024 End: 83-66-3597Wzzmxv outpatient visit 15 minutesCorey Chris DO Work Phone: [facility]CP OBComment on above:Pre-op examination; Pelvic pain in female; EndometriosisStart: 05-19-2024 End: 61-85-0582Iavxmqtfjroam examination doneCorey Chris DO Work Phone: [facility] HealthcareStart: 05-19-2024 End: 19-75-2020wopslaaybrTVUFL FAZIONot AvailableStart: 05-10-2024 End: 10-19-2083Sarvxo outpatient visit 15 minutesAmy Blayne BAKER Work Phone: [facility] BCP OBComment on above:Pelvic pain in female; Urinary frequencyStart: 05-10-2024 End: 36-38-1359zlupfqipvcWCK RAMEYNot AvailableStart: 02-25-2024 End: 09-84-7684Crfcmp flowsheetLinda Smith PA Work Phone: [facility] OBStart: 02-25-2024 End: 96-02-2713Mvurmt flowsheetAmy Blayne PA Work Phone: [facility] OBStart: 02-25-2024 End: 32-52-3661Mlykzr outpatient visit 15 minutesAmy Blayne PA Work Phone: [facility] BCP OBComment on above: control counseling (Primary Dx); Menorrhagia with regular cycleStart: 02-25-2024 End: 10-58-3018vtenfaduzuOCK RAMEYNot AvailableStart: 12-29-2023 End: 02-00-7877Mfyzgl flowsheetAmy Randolph PA Work Phone: [facility] OBStart: 12-29-2023 End: 66-31-9120Hrtkht flowsYeny Smith PA Work Phone: [facility] OBStart: 12-29-2023 End: 49-03-7007Espkwz outpatient visit 15 minutesLinda BAKER Work Phone: [facility] OBComment on above:Dysmenorrhea; Pelvic pain in female; Encounter for initial prescription of contraceptives, unspecified contraceptive; Menorrhagia with regular cycle; PCOS (polycystic ovarian syndrome); Anxiety, generalized (CMS/HCC)Start: 12-29-2023 End: 12-64-3119qchldhutetUPI RAMEYNot AvailableStart: 12-18-2023 End: 04-43-9432Hqstwib encounter procedureDO Torrie Peres Work Phone: [facility]-Ul[facility]ound Main [place] Work Phone: Start: 12-18-2023 End: 68-68-9227bdaaaykitcGR Torrie Peres Work Phone: [facility] Work Phone: Start: 09-13-2023 End: 66-80-9378Ltcvimewj department patient visitDO Torrie Peres Work Phone: [facility]-Emergency Room Work Phone: Start: 02-20-2023 End: 17-99-8302edwahzobbzLjgzxk Dymond Other [employer] Other Start: 32-12-3297Lvsbzb outpatient visit 15 minutes [facility] ClydeStart: 70-01-9022Solcf Stevie Peres Work Phone: [phone]-Uzlzelrgfhmr-[facility] Work Phone: Start: 32-87-2208Ppmbmc outpatient visit 15 minutes Torrie Peres Work Phone: [phone]-Pdnxzgbyoaol-[address] Work Phone: Start: 00-51-5539Gcwjc Stevie Padrony Work Phone: [phone]-WmgjzxnncbuzBayhealth Emergency Center, [place] 210 Work Phone: Start: 02-00-8265Erkrov follow up visit related to original Hien [place] Work Phone: [phone]-JgszanqiiykcBayhealth Emergency Center, [place] 210 Work Phone: Start: 88-99-2229Tvunfj follow up visit related to original Hien Killian-Manav Work Phone: [phone]-OptvkdczckwfGalion Hospital 130 DO Work Phone: Start: 49-77-2767Cdwuz Stevie Killian-[place]av Work Phone: [phone]-WarjxqmjfwszBayhealth Emergency Center, [place] 210 Work Phone: Start: 64-40-0552Vhqbqd outpatient new 45 minutes Torrie Peres Work Phone: [phone]-DqbyrymcruykSan [facility] Medical Center 130 DO Work Phone: Start: 03-01-2019 End: 65-99-5683Epgwwrq encounter procedureKRISTINA EBERLYFacility:H1 Procedures DateProcedureProcedure DetailPerforming ClinicianStart: 63-49-4166GWN CBC WITH AUTO DIFFCorey Chris DO Work Phone: Start: 97-26-6368Srnwueyypkqla metabolic panelMaicol Chandler MD Work Phone: Start: 54-69-0961Xwfbp Hardy Chandler MD Work Phone: Start: 89-09-3759Fdfxk dip stick/tablet rgnt non-auto w/o micrscpAnuria BAKER Work Phone: Start: 69-00-0735Ektzi test visual color cmprsn Alena BAKER Work Phone: Start: 46-54-0875Xsgexyjoitku echographyDO Torrie Peres Work Phone: Start: 31-41-8397Ecuqnt echographyDO Torrie Peres Work Phone: Start: 07-02-6117BjygsxcfsxexutvpOlidd: 09-23-2019 Echocardiography Plan of Treatment DateCare ActivityDetailAuthorStart: 01-25-2025 End: 48-10-7686Pfurlnh encounter /12/2025 2:00 PM EST Procedure Visit [facility] [address] [place] [address] Linda Smith, PA [address] [place] [address] NOMKamini Salinas OBGYNStart: 11-14-2024 Influenza vaccinationNOMS HealthcareStart: 05-19-2024 End: 68-04-0215Zflrdxv encounter procedureNOMS BCP OBComment on above:Arrived Start: 02-29-2024 End: 50-33-5953Couxmcd encounter ajofisrze19/16/2024 10:30 AM EST Procedure Visit [facility] [address] [place] [phone] Estefania Kennedy DO [address] [place] [place] [address] [facility] BCP OBStart: 02-25-2024 End: 81-50-7404Jsrjjir encounter uanuowjpr62/12/2024 11:10 AM EST Office Visit [facility] [address] [place] [phone] Linda Smith, PA [address] [place], [place] [id number] ArrivedNOCA BCP OBComment on above:ArrivedStart: 12-29-2023 End: 63-43-6257rIXN in Blood by Coagulation assayAPTT Lab Routine Menorrhagia with regular cycle Expected: 12/29/2023 (Approximate), Expires: 12/28/2024NOMS HealthcareComment on above:Expected: 12/29/2023 (Approximate), Expires: 12/28/2024Start: 12-29-2023 End: 08-45-1482SGYVPFIW Lab Routine PCOS (polycystic ovarian syndrome) Expected: 12/29/2023 (Approximate), Expires: 12/28/2024[facility] HealthcareComment on above: Expected: 12/29/2023 (Approximate), Expires: 12/28/2024Start: 12-29-2023 End: 96-75-2036MC for pregnancyUS PELVIS-TRANSVAG IF INDICATED Imaging Routine Menorrhagia with regular cycle Expected: 12/29/2023(Approximate), Expires: 12/28/2024[facility] HealthcareComment on above:Expected: 12/29/2023 (Approximate), Expires: 12/28/2024Start: 12-29-2023 End: 96-28-3655Blsapyt encounter lukwdwnuk91/15/2024 8:30 AM EDT Office Visit [facility] OB [address] [place] [address] Linda Smith PA [address] [place] [address] [facility] OBComment on above:ArrivedStart: 11-15-2023 COVID-19 ( season)COVID-19 ( season)[facility]: 04-79-1069GEM (#1)FLU (#1)[facility]: 29-43-7399Yyrcbcary vaccinationInfluenza Vaccine (#1)[facility] HealthcareStart: 50-38-2699Gohbev echographyUS pelvic completeHighland District Hospital Start: 04-48-0855Rpkwpohpwzoc echographyUS transvaginSamaritan Hospitaltart: 26-37-2599QP PelvisWVUMedicine Harrison Community Hospitaltart: 32-18-3931JJ Pelvis transvaginSamaritan Hospitaltart: 85-29-2669Frmshsworfk observation [Identifier] in Cervix by Cyto stainPap Smear [facility]: 01-30-6396RCG, Provider: Maira Sawyer, Status: Pen, Time: 11:15 AMPOV, Provider: Maira Sawyer, Status: Pen, Time: 11:15 AM BL-Eekcjtmwfugg-Mwecvc 210 Work Phone: Start: 73-84-3665YZC, Provider: Maira Sawyer, Status: Pen, Time: 11:15 AMPOV, Provider: Maira Sawyer, Status: Pen, Time: 11:15 AM EG-Facvbbwzncod-Glmqgnpx [place] [address] DO Work Phone: Start: 74-68-5379Ocvbipfwz B (1 of 3 - 19+ 3-dose series)Hepatitis B (1 of 3 - 19+ 3-dose series)[facility]: 06-65-2445ZjxF (1 of 2 - MenB 2-Dose Series Bexsero)MenB (1 of 2 - MenB 2-Dose Series Bexsero)[facility]: 05-66-5918RCZ (1 - 3-dose series) HPV (1 - 3-dose series)[facility]: 28-48-0071Ptvlhwuvv (1 of 2 - 13+ 2-dose series)Varicella (1 of 2 - 13+ 2-dose series)[facility]: 16-47-5054Faqleyl Diphtheria and Pertussis Vaccines (1 - Tdap) Tetanus Diphtheria and Pertussis Vaccines (1 - Tdap)[facility] Start: 92-75-8653RGY (1 of 1 - Standard series)MMR (1 of 1 - Standard series) [facility] CenterCBC W Auto Differential panel - BloodCBC and differential Lab Routine Menorrhagia with regular cycle Ordered: 12/29/2023[facility] Work Phone: comment on above:Ordered: 4CBC W Auto Differential panel - BloodCBC and differential Lab Routine Menorrhagia with regular cycle Ordered: 02/25/2024[facility] Work Phone: comment on above:Ordered: 02/25/2024HEA-sulfateDHEA- sulfate Lab Routine PCOS (polycystic ovarian syndrome) Ordered: 12/29/2023[facility] HealthcareComment on above:Ordered: 12/29/2023Follicle stimulating hormone Follicle stimulating hormone Lab Routine PCOS (polycystic ovarian syndrome) Ordered: 12/29/2023[facility] HealthcareComment on above:Ordered: 12/29/2023hCG, quantitative, pregnancyhCG, quantitative, Lab Routine Menorrhagia with regular cycle Ordered: 12/29/2023[facility] HealthcareComment on above:Ordered: 12/29/2023Hemoglobin A1c/Hemoglobin.total in BloodHemoglobin A1c Lab Routine Menorrhagia with regular cycle Ordered: 12/29/2023[facility] HealthcareComment on above:Ordered: 12/29/2023Luteinizing hormoneLuteinizing hormone Lab Routine PCOS (polycystic ovarian syndrome) Ordered: 12/29/2023[facility] HealthcareComment on above:Ordered: 12/29/2023atient EducationOvarian Cyst [facility] Work Phone: Patient [facility] Work Phone: Prothrombin time (PT) in Blood by Coagulation assay Protime-INR Lab Routine Menorrhagia with regular cycle Ordered: 12/29/2023[facility] HealthcareComment on above:Ordered: 12/29/2023Thyrotropin [Units/volume] in Serum or PlasmaTSH Lab Routine Menorrhagia with regular cycle Ordered: 12/29/2023[facility] HealthcareComment on above:Ordered: 12/29/2023Thyroxine (T4) free [Mass/volume] in Serum or PlasmaT4, free Lab Routine Menorrhagia with regular cycle Ordered: 12/29/2023[facility] HealthcareComment on above:Ordered: 12/29/2023 Immunizations Immunization DateImmunizationNotesCare AyrefwetFginivoa48-67-9688Bxzjsw-JwvITtqo COVID-19 Vacc 30 MCG/0.3ML Intramuscular SuspensionSshamir Peres Work Phone: [phone]-Iwpjolgkmhky-[facility] 210 Work Phone: [phone]-JohQNjfq COVID-19 Vacc 30 MCG/0.3ML Intramuscular SuspensionSandra Nini [place] Work Phone: [phone]-SjcurxunqzlpCommunity [facility] 130 DO Work Phone: [phone] polysaccharide (groups A, C, Y and W-135) diphtheria toxoid conjugate vaccine (MCV4P)Torrie [facility] Work Phone: [phone]-GcpheakrrycdCommunity Medical Center[facility] 130 DO Work Phone: [phone]pjouis, quadrivalent, recombinant, injectable influenza vaccine, preservative freeWishek Community Hospital [facility] Work Phone: QM-HewnoiqsdcawCommunity Medical Center-[facility] 130 DO Work Phone: [phone]ugazemxe virus vaccine, unspecified formulationLinda BAKER Work Phone: [facility] LawnPfytqkdayf62-63-2421tbkznchrr A vaccine, pediatric/adolescent dosage, 2 dose scheduleSshamir [place] Work Phone: KD-ZhzitycsjdgzCommunity [facility] 130 DO Work Phone: [phone] papilloma virus vaccine, quadrivalent Torrie [facility] Work Phone: [phone]-PlgkdrrqwyrvCommunity [facility] Center-[facility] 130 DO Work Phone: [phone]sodohplvsw polysaccharide (groups A, C, Y and W-135) diphtheria toxoid conjugate vaccine (MCV4P)Torrie [place] Work Phone: IT-EnmuuyxjpmduCommunity Medical Center-[facility] 130 DO Work Phone: [phone]xm toxoid, reduced diphtheria toxoid, and acellular pertussis vaccine, adsorbedSand [facility]Cho[facility] Work Phone: WP-LfkwxpvrwqwcCommunity [facility] 130 DO Work Phone: [phone] papilloma virus vaccine, quadrivalent Torrie [facility] Work Phone: [place]-PmckwmqabjhfCommunity [facility] 130 DO Work Phone: [phone], seasonal, injectable, preservative freeSandra Nini Peres Work Phone: KA-VjlbprlzqczhCommunity [facility] 130 DO Work Phone: [phone] A vaccine, pediatric/adolescent dosage, 2 dose scheduleSandra Nini Peres Work Phone: OP-VabupaggxzrfLake [facility] 130 DO Work Phone: [phone] papilloma virus vaccine, quadrivalent Torrie [place] Work Phone: [place]-KyypnsosccrnTina [place] [address] DO Work Phone: [phone], tetanus toxoids and pertussis vaccineSandra Nini [place] Work Phone: BB-XajlypryhuuqTina V[place] [address] DO Work Phone: [phone], mumps and rubella virus vaccine Torrie HernandezaverJohanna Work Phone: [place]-UpanzdazdiypCommunity [facility] 130 DO Work Phone: [phone] vaccine, unspecified formulation Torrie [place] Work Phone: UE-NmqoeknxomxvLake [facility] 130 DO Work Phone: [phone]asqef virus vaccineSandRobert Wood Johnson [facility] Work Phone: BC-LawwkquchngkCommunity [facility] 130 DO Work Phone: [phone]bmtstdw, tetanus toxoids and pertussis vaccineSandra Terrazas [facility] Work Phone: KZ-UlhyxhkyidxaOlivia [place] [address] DO Work Phone: [phone] influenzae type b vaccine, conjugate unspecified formulationSandra D [facility] Work Phone: FD-VgxeqnpytndsOlivia [place] [address] DO Work Phone: [phone] vaccine, unspecified formulationSand Nini [facility] Work Phone: XB-PsrgdmymrxriOlivia [place] [address] DO Work Phone: [phone] vaccine, unspecified formulationSclearsky rehabilitation hospital of [facility] Nini [facility] Work Phone: TL-PjrzvxeuzilkOlivia [place] [address] DO Work Phone: [phone], mumps and rubella virus vaccine Torrie Nini [facility] Work Phone: CE-MhtwdavnqxnxTina [place] [address] DO Work Phone: [phone]achylzm virus vaccineSJefferson Cherry [facility] Hospital ([facility]) Work Phone: PX-LvgvjfmgiicvTina V[place] [address] DO Work Phone: [phone] syncytial virus monoclonal antibody (palivizumab), intramuscularSaRiverview Medical Center Work Phone: WQ-LxfangamdmjeTina [place] [address] DO Work Phone: [phone]d, tetanus toxoids and acellular pertussis vaccine, unspecified formulationSJefferson Cherry [facility] ([facility]) Work Phone: YM-SudjufokzrfpOlivia [place] [address] DO Work Phone: [phone]pzkadllwns influenzae type b conjugate and Hepatitis B vaccineSJefferson Cherry [facility] Hospital ([facility]) Work Phone: RK-QtcouyglklkbOlivia [place] [address] DO Work Phone: [phone] vaccine, inactivatedSandRobert Wood [facility] Work Phone: QE-ArfqihkbvbkbOlivia V[place] [address] DO Work Phone: [phone] syncytial virus monoclonal antibody (palivizumab), intramuscularSandra D [place] Work Phone: [phone]-TaaqtbjathuzCommunity Medical Center[facility] 130 DO Work Phone: [phone]bjferhulj syncytial virus monoclonal antibody (palivizumab), intramuscularSandra D [place] Work Phone: [phone]-QfczfevpkwbpCommunity [facility] 130 DO Work Phone: [phone]snsccird syncytial virus monoclonal antibody (palivizumab), intramuscularSandra D [place] Work Phone: [phone]-LlqhlumtqojbCommunity Medical Center[facility] 130 DO Work Phone: [phone]yjrvalfh, tetanus toxoids and acellular pertussis vaccine, unspecified formulationSandra D [place] Work Phone: [phone]-WvzekkdwcwetLake [facility]bury [facility] 130 DO Work Phone: [phone]muquiqvn influenzae type b conjugate and Hepatitis B vaccineSandra D [place] Work Phone: [phone]-DlrawvhhxaleCommunity Medical Center[facility] 130 DO Work Phone: [phone] vaccine, inactivatedSandra D [place] Work Phone: [phone]-WbmopnpqtdmrCommunity [facility] 130 DO Work Phone: [phone] syncytial virus monoclonal antibody (palivizumab), intramuscularSandra D [place] Work Phone: [phone]-VjmnwtunmtgjCommunity [facility] 130 DO Work Phone: [phone]jrvjcvnb, tetanus toxoids and acellular pertussis vaccine, unspecified formulationSandra D [place] Work Phone: [phone]-PemzdtqujqxoCommunity [facility] Center[facility] 130 DO Work Phone: [phone]juoutk influenzae type b conjugate and Hepatitis B vaccineSandra D [place] Work Phone: [phone]-FycalybzvxmkGalion [facility] 130 DO Work Phone: [phone] vaccine, inactivatedSandra D Constantin-Manav Work Phone: [phone]-Rwvdxpbwsydb-[facility] 130 DO Work Phone: Payers DatePayer CategoryPayerPolicy [id number] Health [id number] [id number] 2.16.840.0.94476[id number] 2.840.1.740579.3.57[id number] 2.840.1.315638.3.57[id number] 2..840.1.476229.3.57[id number] 2.16.840.1.574095.3.57[id number] 2.16.840.1.932927.3.57[id number] 2.16.840.1.869282.3.57[id number] 2.16840.1.563845.3.57[id number] 2.16.840.1.539026.3.579.2.011197-62-3817Eycq-gwmInhnexc Health Insurance [id number] 2.[id number] 2.16.840.1.008220.3.579.2.593 [id number] [id number]-67wj-[id number] Auto/[id number] [id number]-[id number] 2.16.840.1.5[id number] 2.16840.1.329530.3.579.2.531 Social History DateTypeDetailFacilityUnknown if ever smokedAustin FromUs Other Start: 11-05-2022 End: 21-35-9518Rex Assigned At [facility] FromUs Other Start: 11-03-2022 End: 36-57-3631Oeltlfy smoking status NHISNever smoked tobacco (finding) [facility]: 69-18-9209Lmy [facility] At [facility]: 10-23-2022 End: 19-97-0961Ggtegps use and exposureSmokeless tobacco non-userNOMS Healthcare Start: 11-05-2022 End: 37-38-1224Xeebavpeh beverage intakeLifetime non-drinker (finding)[facility] HealthcareStart: 11-05-2022 End: 81-82-0480Rtjcmbe of Social functionNOMS HealthcareHow often to you have a drink containing alcohol?Monthly or lessNOMS HealthcareHow many standard drinks containing alcohol do you have on a typical day?1 or 2NOMS HealthcareHow often do you have 6 or more drinks on 1 occasion?NeverNOMS HealthcareStart: 11-03-2022 Alcohol Commentcaffeine: coffee 1-2 cups a dayNOMS HealthcareStart: 2001 Sex assigned at birthNot on fileNOMS HealthcareStart: 35-23-7153Vsfdrtoxn beverage intakeCurrent non-drinker of alcohol (finding)[facility] NEGATED: Highlighted rowHighland District HospitalNEGATED: Highlighted rowStart: NINFHistory of tobacco usePassive [facility] Medical Equipment Procedure CodeEquipment CodeEquipment Original TextEquipment IdentifierDates ORIF, fracture, wristOrthopaedic bone screw, non-bioabsorbable, non-sterile ()[id number] FDAStart: 33-74-9819DBES, fracture, wristOrthopaedic bone screw, non-bioabsorbable, non-sterile()[id number] FDAStart: 05-19-2019 ORIF, fracture, wristOrthopaedic bone screw, non-bioabsorbable, non-sterile ()[id number] FDAStart: 33-30-0799ZNHD, fracture, wristOrthopaedic bone wire()[id number] FDAStart: 88-94-1198NYPQ, fracture, wristOrthopaedic bone wire()[id number] FDAStart: 05-19-2019 Clinical Notes 04-16-2019 to 11-23-2024 Note Date & QysjDlcyQrqnmqma30-07-1545 History of Present illness Narrative* OLIVIA Kaiser - 11/23/2024 8:40 AM EDT Reason for Appointment: Patient ID: Jos Beckett is a 24 y.o. female who presents for Contraception Patient presents today for Medication Follow Up appointment. MEDICATIONS Current Outpatient Medications Medication Instructions desogestrel-ethinyl estradiol (Apri) 0.15-30 MG-MCG tablet 1 tablet, Oral, Daily, Take 1 tablet by mouth daily levonorgestrel-ethinyl estradiol (Jolessa) 0.15-0.03 MG tablet 1 tablet, Oral, Daily, Take 1 tabletby mouth daily ALLERGIES Allergies Allergen Reactions Maxalt [Rizatriptan] Palpitations Topiramate Other Reaction(s): Hair loss PROBLEMS Active Ambulatory Problems Diagnosis Date Noted Bicuspid aortic valve determined by imaging 10/23/2022 Incomplete RBBB 10/23/2022 Migraine with aura, not intractable, without status migrainosus 10/23/2022 Heart palpitations 10/23/2022 Resolved Ambulatory Problems Diagnosis Date Noted No Resolved Ambulatory Problems Past Medical History: Diagnosis Date Anxiety 04/22/2022 Congenital bicuspid aortic valve 2001 History of asthma Hx of viral meningitis 2001 Migraine headache without aura S/P repair of coarctation of aorta 2001 HISTORY PAST MEDICAL HISTORY SOCIAL HISTORY Past Medical History: Diagnosis Date Anxiety 04/22/2022 Prescribed Venlafaxine Congenital bicuspid aortic valve 2001 Follows with Hotel Director- Dr Forte History of asthma used an inhaler as a child, but no sx in years Hx of viral meningitis 2001 as a Migraine headache without aura Prescribed Maxalt S/P repair of coarctation of aorta 2001 Done at 10 days old. Minimal regurg present. Follows with Hotel Director- Dr Forte Social History Tobacco Use Smoking [...] BIOPSY / ASPIRATION / LYSIS 06/2024 Dr Kennedy ([employer]) ORIF FINGER FRACTURE Left 05/2019 Left pinky finger REVIEW OF SYSTEMS Review of Systems: Review of Systems Constitutional: Negative. HENT: Negative. Eyes: Negative. Respiratory: Negative. Cardiovascular: Negative. Gastrointestinal: Negative. Genitourinary: Negative. Musculoskeletal: Negative. Skin: Negative. Neurological: Negative. All other systems reviewed and are negative. Hematological: Negative. Endocrine: Negative. Allergic/Immunologic: Negative. OBJECTIVE Objective: Physical Exam Constitutional: Appearance: Normal appearance. She is normal weight. HENT: Head: Normocephalic. Cardiovascular: Rate and Rhythm: Normal rate. Pulses: Normal pulses. Pulmonary: Effort: Pulmonary effort is normal. Breath sounds: Normal breath sounds. Abdominal: Palpations: Abdomen is soft. Musculoskeletal: General: Normal range of motion. Neurological: General: No focal deficit present. Mental Status: She is alert and oriented to person, place, and time. Psychiatric: Mood and Affect: Mood normal. Behavior: Behavior normal. Thought Content: Thought content normal. Judgment: Judgment normal. Vitals and nursing note reviewed. Vitals: Estimated body mass index is 30.91 kg/m as calculated from the following: Height as of 12/29/23: 5' 3 . Weight as of this encounter: 174 lb 8 oz. BP: 112/82 Patient's last menstrual period was 11/02/2024 (approximate). ASSESSMENT & PLAN ICD-10-CM 1. control counseling Z30.09 levonorgestrel-ethinyl estradiol (Jolessa) 0.15-0.03 MG tablet Patient continues to have heavy pain and bleeding while taking apri. We will try Jolessa and have perirod only quarterly. Patient will schedule for annual in 6- 8 weeks and we will see how she is tolerating at that time. Mirena options discussed Documented by OLIVIA Kaiser on behalf of: OLIVIA Kaiser documented in this encounterCox Walnut LawnEpdomreopc08-14-1643 History of Present illness Narrative* Amparo Jasso - 05/19/2024 8:40 AM EST Reason for Appointment: Patient ID: Jos Beckett is a 23 y.o. female who presents for Pre-op Visit Patient presents today for Pre Op appointment. Patient is scheduled to undergo Diagnostic Laparoscopy, possible SANDRA, possible FOE, possible BSO on 06/17/[address] Kennedy at [facility]. MEDICATIONS Current Outpatient Medications Medication Instructions citalopram (CELEXA) 10 mg, Oral, Daily norethindrone-ethinyl estradiol (04/04) 1-20 MG-MCG tablet 1 tablet, Oral, Daily ALLERGIES Allergies Allergen Reactions Maxalt [Rizatriptan] Palpitations Topiramate Other Reaction(s): Hair loss PROBLEMS Active Ambulatory Problems Diagnosis Date Noted Bicuspid aortic valve determined by imaging 10/23/2022 Incomplete RBBB 10/23/2022 Migraine with aura, not intractable, without status migrainosus (CMS/HCC) 10/23/2022 Heart palpitations 10/23/2022 Resolved Ambulatory Problems Diagnosis Date Noted No Resolved Ambulatory Problems Past Medical History: Diagnosis Date Anxiety 04/22/2022 Congenital bicuspid aortic valve 2001 History of asthma Hx of viral meningitis 2001 Migraine headache without aura (CMS/HCC) S/P repair of coarctation of aorta 2001 HISTORY PAST MEDICAL HISTORY SOCIAL HISTORY Past Medical History: Diagnosis Date Anxiety 04/22/2022 Prescribed Venlafaxine Congenital bicuspid aortic valve 2001 Follows with Hotel Director- Dr Forte History of asthma used an inhaler as a child, but no sx in years Hx of viral meningitis 2001 as a Migraine headache without aura (CMS/HCC) Prescribed Maxalt S/P repair of coarctation of aorta 2001 Done at 10 days old. Minimal regurg present. Follows with Hotel Director- Dr Forte Social History Tobacco Use Smoking [...] SURGERY Right 11/2020 Fusion right 5th finger ORIF FINGER FRACTURE Left 05/2019 Left pinky finger REVIEW OF SYSTEMS Review of Systems: Review of Systems Constitutional: Negative. HENT: Negative. Eyes: Negative. Respiratory: Negative. Cardiovascular: Negative. Gastrointestinal: Negative. Genitourinary: Positive for pelvic pain. Musculoskeletal: Negative. Skin: Negative. Neurological: Negative. All other systems reviewed and are negative. Hematological: Negative. Endocrine: Negative. Allergic/Immunologic: Negative. OBJECTIVE Objective: Physical Exam Constitutional: Appearance: Normal appearance. She is well-developed. Cardiovascular: Rate and Rhythm: Normal rate and regular rhythm. Pulmonary: Effort: Pulmonary effort is normal. Breath sounds: Normal breath sounds. Abdominal: General: Bowel sounds are normal. There is no distension. Palpations: Abdomen is soft. Tenderness: There is no abdominal tenderness. There is no guarding or rebound. Musculoskeletal: General: No swelling. Normal range of motion. Right lower leg: No edema. Left lower leg: No edema. Neurological: Mental Status: She is alert and oriented to person, place, and time. Skin: General: Skin is warm and dry. Psychiatric: Mood and Affect: Mood normal. Behavior: Behavior normal. Vitals and nursing note reviewed. Exam conducted with a tone cabinet assembler present. Vitals: Estimated body mass index is 31.55 kg/m as calculated from the following: Height as of 12/29/23: 5' 3 . Weight as of this encounter: 178 lb 1.9 oz. BP: 110/82 No LMP recorded (within weeks). ASSESSMENT & PLAN ICD-10-CM 1. Pre-op examination Z01.818 2. Pelvic pain in female R10.2 3. Endometriosis N80.9 Pre Op: Patient is doing well but has complaints of pelvic pain. I have discussed conservative management vs. surgical management with the patient in detail and patient desires surgical management at this time. Patient will undergo Diagnostic Laparoscopy, possible SANDRA, possible FOE, possible BSO on 06/17/2024. Surgical consents were signed, mmc was reviewed, and patient is to [facility] to [facility] OR. Follow Up: Patient is to follow up between 1-2 weeks post operative to assess proper healing and recovery fromprocedure. Documented by Amparo Jasso on behalf of: Estefania Kennedy DO documented in this encounterCox Walnut LawnCtfxpotypt06-25-7270 History of Present illness Narrative* OLIVIA Kaiser - 05/10/2024 9:00 AM EST Reason for Appointment: Patient ID: Jos Beckett is a 23 y.o. female who presents for Pelvic Pain and Urinary Frequency Patient presents today for Pelvic pain and urine frequency. MEDICATIONS Current Outpatient Medications Medication Instructions citalopram (CELEXA) 10 mg, Oral, Daily ibuprofen 800 mg, Every 6 hours PRN norethindrone-ethinyl estradiol (04/04) 1-20 MG-MCG tablet 1 tablet, Oral, Daily ondansetron ODT (ZOFRAN-ODT) 4 mg, Every 8 hours PRN ALLERGIES Allergies Allergen Reactions Maxalt [Rizatriptan] Palpitations Topiramate Other Reaction(s): Hair loss PROBLEMS Active Ambulatory Problems Diagnosis Date Noted Bicuspid aortic valve determined by imaging 10/23/2022 Incomplete RBBB 10/23/2022 Migraine with aura, not intractable, without status migrainosus (CMS/HCC) 10/23/2022 Heart palpitations 10/23/2022 Resolved Ambulatory Problems Diagnosis Date Noted No Resolved Ambulatory Problems Past Medical History: Diagnosis Date Anxiety 04/22/2022 Congenital bicuspid aortic valve 2001 History of asthma Hx of viral meningitis 2001 Migraine headache without aura ([facility] S/P repair of coarctation of aorta 2001 HISTORY PAST MEDICAL HISTORY SOCIAL HISTORY Past Medical History: Diagnosis Date Anxiety 04/22/2022 Prescribed Venlafaxine Congenital bicuspid aortic valve 2001 Follows with Hotel Director- Dr Forte History of asthma used an inhaler as a child, but no sx in years Hx of viral meningitis 2001 as a Migraine headache without aura ([facility]) Prescribed Maxalt S/P repair of coarctation of aorta 2001 Done at 10 days old. Minimal regurg present. Follows with Hotel Director- Dr Forte Social History Tobacco Use Smoking [...] SURGERY Right 11/2020 Fusion right 5th finger ORIF FINGER FRACTURE Left 05/2019 Left pinky finger REVIEW OF SYSTEMS Review of Systems: Review of Systems All other systems reviewed and are negative. OBJECTIVE Objective: Physical Exam Constitutional: Appearance: Normal appearance. She is well-developed. Cardiovascular: Rate and Rhythm: Normal rate and regular rhythm. Pulmonary: Effort: Pulmonary effort is normal. Breath sounds: Normal breath sounds. Abdominal: General: Bowel sounds are normal. There is no distension. Palpations: Abdomen is soft. Tenderness: There is no abdominal tenderness. There is no guarding or rebound. Musculoskeletal: General: No swelling. Normal range of motion. Right lower leg: No edema. Left lower leg: No edema. Neurological: Mental Status: She is alert and oriented to person, place, and time. Skin: General: Skin is warm and dry. Psychiatric: Mood and Affect: Mood normal. Behavior: Behavior normal. Vitals and nursing note reviewed. Exam conducted with a tone cabinet assembler present. Vitals: Estimated body mass index is 32.06 kg/m as calculated from the following: Height as of 12/28/24: 5' 3 . Weight as of this encounter: 181 lb. BP: 120/70 No LMP recorded (within weeks). ASSESSMENT & PLAN ICD-10-CM 1. Pelvic pain in female R10.2 SURESWAB(R) ADVANCED VAGINITIS PLUS, TMA CHLAMYDIA TRACHOMATIS (GENITO/STI) Neisseria gonorrhea DNA probe, direct POCT , urine manually resulted 2. Urinary frequency R35.0 POCT urinalysis dipstick manually resulted Patient is having Pelvic pain and Urine frequency. Patient did have urine cultures obtained and these were negative. Patient has history of endometriosis and was seen last year. US showed nothing abnormal at the time and pt was placed on . The Augustl had helped with pain until recently and pt called stating she was having pelvic pain and urinary frequency. Ua today negative, cultures were offered and patient declined. Patient advised to have repeat ultrasound completed. Patient to see Scaffold Worker for Diagnostic Lap to be completed. Patient to use IBU to help with this. Patient does have Zofran. We will get pt scheduled for diagnostic lap and review US when completed. Pt will return for preop or sooner if needed Documented by Zakia Kelly LPN on behalf of: OLIVIA Kaiser documented in this encounterCox Walnut [id number] History of Present illness Narrative* OLIVIA Kaiser - 02/25/2024 11:10 AM EST Reason for Appointment: Patient ID: Jos Beckett is a 23 y.o. female who presents for Contraception Patient presents today for medication follow up MEDICATIONS Current Outpatient Medications Medication Instructions citalopram (CELEXA) 10 mg, Oral, Daily ibuprofen 800 mg, Every 6 hours PRN norethindrone-ethinyl estradiol (04/04) 1-20 MG-MCG tablet 1 tablet, Oral, Daily ondansetron ODT (ZOFRAN-ODT) 4 mg, Every 8 hours PRN ALLERGIES Allergies Allergen Reactions Maxalt [Rizatriptan] Palpitations Topiramate Other Reaction(s): Hair loss PROBLEMS Active Ambulatory Problems Diagnosis Date Noted Bicuspid aortic valve determined by imaging 10/23/2022 Incomplete RBBB 10/23/2022 Migraine with aura, not intractable, without status migrainosus (CMS/HCC) 10/23/2022 Heart palpitations 10/23/2022 Resolved Ambulatory Problems Diagnosis Date Noted No Resolved Ambulatory Problems Past Medical History: Diagnosis Date Anxiety 04/22/2022 Congenital bicuspid aortic valve 2001 History of asthma Hx of viral meningitis 2001 Migraine headache without aura (CMS/HCC) S/P repair of coarctation of aorta 2001 HISTORY PAST MEDICAL HISTORY SOCIAL HISTORY Past Medical History: Diagnosis Date Anxiety 04/22/2022 Prescribed Venlafaxine Congenital bicuspid aortic valve 2001 Follows with Hotel Director- Dr Forte History of asthma used an inhaler as a child, but no sx in years Hx of viral meningitis 2001 as a Migraine headache without aura (CMS/HCC) Prescribed Maxalt S/P repair of coarctation of aorta 2001 Done at 10 days old. Minimal regurg present. Follows with Hotel Director- Dr Forte Social History Tobacco Use Smoking [...] SURGERY Right 11/2020 Fusion right 5th finger ORIF FINGER FRACTURE Left 05/2019 Left pinky finger REVIEW OF SYSTEMS Review of Systems: Review of Systems Constitutional: Negative. HENT: Negative. Eyes: Negative. Respiratory: Negative. Cardiovascular: Negative. Gastrointestinal: Negative. Genitourinary: Negative. Musculoskeletal: Negative. Skin: Negative. Neurological: Negative. All other systems reviewed and are negative. Hematological: Negative. Endocrine: Negative. Allergic/Immunologic: Negative. OBJECTIVE Objective: Physical Exam Constitutional: Appearance: Normal appearance. She is normal weight. HENT: Head: Normocephalic. Cardiovascular: Rate and Rhythm: Normal rate. Pulses: Normal pulses. Pulmonary: Effort: Pulmonary effort is normal. Breath sounds: Normal breath sounds. Abdominal: Palpations: Abdomen is soft. Musculoskeletal: General: Normal range of motion. Neurological: General: No focal deficit present. Mental Status: She is alert and oriented to person, place, and time. Psychiatric: Mood and Affect: Mood normal. Behavior: Behavior normal. Thought Content: Thought content normal. Judgment: Judgment normal. Vitals and nursing note reviewed. Vitals: Estimated body mass index is 31.32 kg/m as calculated from the following: Height as of 12/29/23: 5' 3 . Weight as of this encounter: 176 lb 12.8 oz. BP: 110/70 No LMP recorded. ASSESSMENT & PLAN ICD-10-CM 1. control counseling Z30.09 norethindrone-ethinyl estradiol (04/04) 1-20 MG-MCG tablet 2. Menorrhagia with regular cycle N92.0 CBC and differential Patient had been placed on tyblume over past several weeks and has had experienced heavy bleeding for the past several weeks. Patient wishes to try different oral contraceptive. We will send in and follow up as needed. Pt given order for CBC to check hemoglobin Documented by OLIVIA Kaiser on behalf of: OLIVIA Kaiser documented in this encounterCox Walnut [id number] History of Present illness Narrative* OLIVIA Kaiser - 12/29/2023 8:30 AM EDT Reason for Appointment: Patient ID: Jos Beckett is a 23 y.o. female who presents for Dysmenorrhea, Pelvic Pain, and Contraception Patient presents today for Painful cycles, right sided pelvic pain and Discuss B/C. MEDICATIONS Current Outpatient Medications Medication Instructions ibuprofen 800 mg, Every 6 hours PRN ondansetron ODT (ZOFRAN-ODT) 4 mg, Every 8 hours PRN ALLERGIES Allergies Allergen Reactions Maxalt [Rizatriptan] Palpitations Topiramate Other Reaction(s): Hair loss PROBLEMS Active Ambulatory Problems Diagnosis Date Noted Bicuspid aortic valve determined by imaging 10/23/2022 Incomplete RBBB 10/23/2022 Migraine with aura, not intractable, without status migrainosus (CMS/HCC) 10/23/2022 Heart palpitations 10/23/2022 Resolved Ambulatory Problems Diagnosis Date Noted No Resolved Ambulatory Problems Past Medical History: Diagnosis Date Anxiety 04/22/2022 Congenital bicuspid aortic valve 2001 History of asthma Hx of viral meningitis 2001 Migraine headache without aura (CMS/HCC) S/P repair of coarctation of aorta 2001 HISTORY PAST MEDICAL HISTORY SOCIAL HISTORY Past Medical History: Diagnosis Date Anxiety 04/22/2022 Prescribed Venlafaxine Congenital bicuspid aortic valve 2001 Follows with Hotel Director- Dr Forte History of asthma used an inhaler as a child, but no sx in years Hx of viral meningitis 2001 as a Migraine headache without aura (CMS/HCC) Prescribed Maxalt S/P repair of coarctation of aorta 2001 Done at 10 days old. Minimal regurg present. Follows with Hotel Director- Dr Forte Social History Tobacco Use Smoking [...] SURGERY Right 11/2020 Fusion right 5th finger ORIF FINGER FRACTURE Left 05/2019 Left pinky finger REVIEW OF SYSTEMS Review of Systems: Review of Systems All other systems reviewed and are negative. OBJECTIVE Objective: Physical Exam Constitutional: Appearance: Normal appearance. She is well-developed. Cardiovascular: Rate and Rhythm: Normal rate and regular rhythm. Pulmonary: Effort: Pulmonary effort is normal. Breath sounds: Normal breath sounds. Abdominal: General: Bowel sounds are normal. There is no distension. Palpations: Abdomen is soft. Tenderness: There is no abdominal tenderness. There is no guarding or rebound. Musculoskeletal: General: No swelling. Normal range of motion. Right lower leg: No edema. Left lower leg: No edema. Neurological: Mental Status: She is alert and oriented to person, place, and time. Skin: General: Skin is warm and dry. Psychiatric: Mood and Affect: Mood normal. Behavior: Behavior normal. Vitals and nursing note reviewed. Exam conducted with a tone cabinet assembler present. Vitals: Estimated body mass index is 31.67 kg/m as calculated from the following: Height as of this encounter: 5' 3 . Weight as of this encounter: 178 lb 12.8 oz. BP: 110/70 No LMP recorded (within weeks). ASSESSMENT & PLAN ICD-10-CM 1. Dysmenorrhea N94.6 2. Pelvic pain in female R10.2 3. Encounter for initial prescription of contraceptives, unspecified contraceptive Z30.019 POCT , urine manually resulted Patient presents today for Painful cycles and right sided pelvic pain ongoing for a few months. Patient did have ER visit and did have follow-up Ultrasound for this which had been in August. Patient states that the pain is worse around her cycle starting. Patient also states she has daily nausea and concerned for endometriosis. US reviewed with patient. Patient would like to discuss Oral control at this visit and samples of Tyblume given. Patient to have labs and ultrasound completed. Patient mom at bedside and also states she has a more flat affect and patient agrees, she is stressed at work and not feeling herself. She states she has gained 40lbs with out changing her eating habits. We also discussed starting celexa to se if that may help with anxiety and stress. Pt is going to think about getting on schedule for annual and also a mirena insertion. Patient will follow up with dr kennedy to discuss ultrasound results and how her pain in improving ornot with cycles and bleeing. We discussed th possibility of dx lap if medication does not seem to help with menorrhagia and pain. No known history of pcos or endometirosis. Father had issues with cortisol levels increasing at this age but mom uncertain of any autoimmune dx. Pt verbalized understanding and agrees with plan of care Patient to schedule annual appointment. Documented by Zakia Kelly LPN on behalf of: OLIVIA Kaiser documented in this encounterCox Walnut [id number] Evaluation note* Encounter Date Diagnosis Assessment Notes Treatment Notes Treatment Clinical Notes Feb, Viral URI (ICD-10 - J06.9) Drink plenty fluids, get plenty of rest. Take the prednisone as prescribed until gone starting tomorrow. Use your fluticasone nasal spray as prescribed until your symptoms improve. Take Tylenol or Motrin for aches pains or fevers. Follow- up with your family physician if no improvement in 2 to 3 days Open-Plug Other 09-29-2021 History of Present illness Narrative* Jos returns to clinic today for 1 first postoperative visit after right small finger proximal inner phalangeal joint arthrodesis with autogenous bone graft as well as removal of hardware performed on 12/12/2020. She overall is doing well without significant pain, no other complaints today. 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 * Examination: Surgical incisions are healing well without any surrounding erythema, active drainage or signs of infections. Sutures are removed today. She slight visible abnormality of the PIP joint of the right small finger. Subjective sensation is normal. Fingers are warm and well perfused. Palpable distal radial pulse. 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 We have transition her into a removable brace today.She may come out of the brace to begin to work on digital range of motion of the other digits. She should avoid any forceful activity or gripping, pinching, pulling with the right hand. At her next visit we will assess for healing and possibly return her back to working activity. She will return toour office in approximately 3 weeks for x-ray of the right hand. * Patient was prescribed a contender brace for right small finger arthrodesis. The patient has weakness, instability and/or deformity of their right small finger which requires stabilization from this orthosis to improve their function. * Verbal and written instructions for the use, wear schedule, cleaning and application of this item were given. Patient was instructed that should the brace result in increased pain, decreased sensation, increased swelling, or an overall worsening of their medical condition, to please contact our office immediately. * Orthotic management and training was provided for skin care, modifications due to healing tissues, edema changes, interruption in skin integrity, and safety precautions with the orthosis. * Maira Sawyer PA-C * Department of Orthopaedic Surgery * [facility] * Dictation performed with the use of voice recognition software. Syntax and grammatical errors may exist. YD-Omnxufmstxrx[address] [place] [address] DO Work Phone: [phone] 132-898609-29-2021 History of Present illness Narrative* Jos returns to clinic today for 1 first postoperative visit after right small finger proximal inner phalangeal joint arthrodesis with autogenous bone graft as well as removal of hardware performed on 12/12/2020. She overall is doing well without significant pain, no other complaints today. 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 * Examination: Surgical incisions are healing well without any surrounding erythema, active drainage or signs of infections. Sutures are removed today. She slight visible abnormality of the PIP joint of the right small finger. Subjective sensation is normal. Fingers are warm and well perfused. Palpable distal radial pulse. 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 We have transition her into a removable brace today.She may come out of the brace to begin to work on digital range of motion of the other digits. She should avoid any forceful activity or gripping, pinching, pulling with the right hand. At her next visit we will assess for healing and possibly return her back to working activity. She will return toour office in approximately 3 weeks for x-ray of the right hand. * Patient was prescribed a contender brace for right small finger arthrodesis. The patient has weakness, instability and/or deformity of their right small finger which requires stabilization from this orthosis to improve their function. * Verbal and written instructions for the use, wear schedule, cleaning and application of this item were given. Patient was instructed that should the brace result in increased pain, decreased sensation, increased swelling, or an overall worsening of their medical condition, to please contact our office immediately. * Orthotic management and training was provided for skin care, modifications due to healing tissues, edema changes, interruption in skin integrity, and safety precautions with the orthosis. * Maira Sawyer PA-C * Department of Orthopaedic Surgery * [facility] * Dictation performed with the use of voice recognition software. Syntax and grammatical errors may exist. [id number] Work Phone: [phone]) 349-580909-29-2021 History of Present illness Narrative* Jos returns to clinic today for her second postoperative visit after right small finger PIP joint arthrodesis with autogenous bone graft as well as removal of hardware performed on 12/12/2020. Overall she states that she is doing very well. She is not experiencing any pain. She has slowly returned back to activity with the hand. She feels at this time she does not need any formal therapy. * Examination: Well-healed surgical incisions over the dorsal aspect of the small digit and is well as right wrist. Good MP joint flexion. Finger is warm and well-perfused. Palpable distal radial pulse. Subjective sensation is normal. * Review of x-rays taken today of the right hand reveal intact hardware with good healing across the PIP joint. 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 Her wounds are completely healed. We discussed slowly starting to return back to normal activity as she tolerates. I have given her a formal referral to Occupational Therapy however she at this time does not feel she needs any therapy. She may use her braceonly as needed. She will return to our office in 5 weeks for repeat x-ray of right hand. * Maira Sawyer PA-C * Department of Orthopaedic Surgery * [facility] * Dictation performed with the use of voice recognition software. Syntax and grammatical errors may exist. [id number] Work Phone: [phone]) 520-236409-29-2021 History of Present illness Narrative* Patient returns to follow-up on her right small finger PIP joint fusion which was done to treat a posttraumatic arthritic condition. Surgery performed on December 12. She reports that she has no pain. She notices a little bump over the dorsal radial aspect of the finger at the PIP joint. Her finger is obviously stiff as expected. She has some achiness with cold weather and some difficulty with heavy lifting because of her lack of mobility. * Past medical history, medications, allergies, surgical history and review of systems have been reviewed with the patient. Pertinent changes are documented in the HPI. Otherwise they are unchanged when compared to last visit on January 14, 2021 * Physical Examination Findings: * Constitutional: Appears well-developed and well-nourished. * Head: Normocephalic and atraumatic. * Eyes: Pupils are equal and round. * Cardiovascular: Intact distal pulses. * Respiratory: Effort normal. No respiratory distress. * Neurologic: Alert and oriented to person, place, and time. * Skin: Skin is warm and dry. * Hematologic / Lymphatic: No lymphedema, lymphangitis. * Psychiatric: normal mood and affect. Behavior is normal. * Musculoskeletal: Examination reveals well-healed dorsal surgical incision. No significant swelling.The surgical implant is a bit prominent over the dorsal and radial aspect of the proximal phalanx head. No skin compromise. She has stiffness at her DIP joint. Full MP joint range of motion. * Review of x-rays right hand taken today demonstrate solid fusion of the PIP joint with retained surgical implant. * Impression: Right small finger PIP joint arthrodesis. * Plan: Overall she is done well. She has no pain and is essentially back to all of her normal activities. We discussed the possibility of hardware removal and extensor tenolysis that might improve herDIP joint mobility to a degree. At this time she has not having interest in considering any furthersurgery for this finger. She is overall very happy given where her finger was when she first presented to me. * Return as needed for recurrence or progression of problems . * Ministerio Castaneda MD * [employer] * [facility] [employer] * Department of Orthopaedic Surgery * Chief of Hand and Upper Extremity Surgery * [facility] * Dictation performed with the use of voice recognition software. Syntax and grammatical errors may exist. IY[address]ef[address] [place] [address] DO Work Phone: [phone]) 138-992302-01-2020 History of Present illness Narrative* Patient is a 20-year-old omujs-ugkf-jalsfsgl female who presents today for second opinion related to a painful deformity of her right small finger. She sustained a jamming injury to her right small finger when playing softball in April 2019. She underwent surgery in May 2019 by a surgeon in the [facility]. Following surgery she was engaged into a therapy program. She has noticed progressive deformity, loss of motion and pain. She has a difficult time using the hand for forceful activities because of limitations in the use of her small finger. She is accompanied by both of her parents. * Patient's self reported past medical history, medications, allergies, surgical history, family and social history as well as a 10 point review of systems has been documented in the new patient intakeform and scanned into the patient's electronic medical record. Pertinent findings are documented inthe HPI. * Physical Examination Findings: * Constitutional: Appears well-developed and well-nourished. * Head: Normocephalic and atraumatic. * Eyes: Pupils are equal and round. * Cardiovascular: Intact distal pulses. * Respiratory: Effort normal. No respiratory distress. * Neurologic: Alert and oriented to person, place, and time. * Skin: Skin is warm and dry. * Hematologic / Lymphatic: No lymphedema, lymphangitis. * Psychiatric: normal mood and affect. Behavior is normal. * Musculoskeletal: Right hand examination reveals healed dorsal surgical incision over the PIP joint.She has an apex ulnar deformity in the coronal plane and slight hyperextension of the PIP joint in the sagittal plane. She has full MP joint range of motion. She has excellent DIP joint range of motio n. She only is able to demonstrate about 30 degrees arc of active and passive range of motion of the PIP joint. This is associated with pain. No signs of infection. Fingertip is warm perfused and sensate. * Review of x-rays right hand taken today demonstrate significant posttraumatic arthritis of the small finger PIP joint. She has retained surgical implants dorsally in the middle phalanx. She has significant destruction and loss of the articular surface and subchondral bone ulnar aspect of the base of the middle phalanx resulting in the coronal plane deformity. * Impression: Posttraumatic arthritis right small finger PIP joint. * Plan: We discussed this injury. Given the degree of bone loss, her age and desired activity level Sunny not think there are any motion preserving procedures that I could perform to restore the alignment and provide functional range of motion. I do not think that implant arthroplasty should be considered in this situation. We discussed 2 potential options. Option 1 would be to perform a PIP joint arthrodesis which would put the finger in a more functional position and should lessen the pain but this will certainly be associated with motion limitations and functional loss of diaphragm builder strength from the hand from a normal hand but not from where she is now. The alternative option should fusion fail to alleviate her pain, result in appearance that she is unhappy with or if she simply would prefer to avoid fusion would be to consider a ray amputation of the small finger. We discussed both of these options in detail. Patient and family unwilling to consider amputation. They do have interest in proceeding with PIP joint arthrodesis. * We discussed risks, benefits, alternatives and anticipated post op course including time away from work and activities following surgical treatment for the patient's condition. This is major surgery with identifiable risks. No guarantees for success have been provided. The patient has expressed unde rstanding and has elected to pursue operative treatment. * She will contact the office so that we can schedule this procedure in the near future. 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 Syntax and grammatical errors may exist. CE-[place]rx[place] [address] DO Work Phone: Evaluation noteNo assessment information available [facility] Work Phone: Evaluation note* Diagnosis Encounter for preventative adult health care examination- Primary Bicuspid aortic valve determined by imaging Migraine with aura, not intractable, without status migrainosus (CMS/HCC) Heart palpitations Palpitations Hair loss Unspecified alopecia Other fatigue Weight gain Other symptoms concerning nutrition, metabolism, and development Medication monitoring encounter Encounter for therapeutic drug monitoring Dysmenorrhea Pelvic pain in female Unspecified symptom associated with female genital organs Encounter for initial prescription of contraceptives, unspecified contraceptive Menorrhagia with regular cycle PCOS (polycystic ovarian syndrome) Polycystic ovaries Anxiety, generalized (CMS/HCC) [facility] Diagnosis Encounter for preventative adult health care examination- Primary Bicuspid aortic valve determined by imaging Migraine with aura, not intractable, without status migrainosus (CMS/HCC) Heart palpitations Palpitations Hair loss Unspecified alopecia Other fatigue Weight gain Other symptoms concerning nutrition, metabolism, and development Medication monitoring encounter Encounter for therapeutic drug monitoring control counseling- Primary Menorrhagia with regular cycle [facility] Diagnosis Encounter for preventative adult health care examination- Primary Bicuspid aortic valve determined by imaging Migraine with aura, not intractable, without status migrainosus (CMS/HCC) Heart palpitations Palpitations Hair loss Unspecified alopecia Other fatigue Weight gain Other symptoms concerning nutrition, metabolism, and development Medication monitoring encounter Encounter for therapeutic drug monitoring Pelvic pain in female Unspecified symptom associated with female genital organs Urinary frequency documented in this encounter [facility]* Diagnosis Encounter for preventative adult health care examination- Primary Bicuspid aortic valve determined by imaging Migraine with aura, not intractable, without status migrainosus (CMS/HCC) Heart palpitations Palpitations Hair loss Unspecified alopecia Other fatigue Weight gain Other symptoms concerning nutrition, metabolism, and development Medication monitoring encounter Encounter for therapeutic drug monitoring Pre-op examination Pelvic pain in female Unspecified symptom associated with female genital organs Endometriosis Endometriosis, site unspecified documented in this encounter [facility] HealthcareEvaluation note* Diagnosis Congenital insufficiency of aortic valve Bicuspid aortic valve Congenital insufficiency of aortic valve Palpitations Asymptomatic PVCs Other premature beats Coarctation of aorta (preductal) (postductal) [facility] Diagnosis Encounter for preventative adult health care examination- Primary Bicuspid aortic valve determined by imaging Migraine with aura, not intractable, without status migrainosus Heart palpitations Palpitations Hair loss Unspecified alopecia Other fatigue Weight gain Other symptoms concerning nutrition, metabolism, and development Medication monitoring encounter Encounter for therapeutic drug monitoring control counseling documented in this encounter [facility] HealthcareHistory general Narrative - Reported* Type Description Date Surgical History aortic valve replacement Surgical HistoryORIF right small fingerHospitalization Historysee above Open-Plug Other Summary Purpose Family History No Family History Records Found Relationship Condition Age at Onset Recorded Date/T francisca father Hypertension Unknown Advance Directives No Advanced Directives Records Found Advance Directive Response Recorded Date/ Time Advance Directives No April 10:19am Chief Complaint NPV right pinky finger/MBPostop right small fingerPostop right small fingerPOV Right hand/MBpatient here 3 months s/p right small finger sx. dos 9-29-21 -[place] Chief Complaint and Reason for Visit Chief Complaint Abdominal Pain Chief Complaint z87.42 Additional Source Comments INFORMATION SOURCE (unrecogn ized section and content) DATE CREATED AUTHOR 03/04/2019 [facility] DATE CREATED AUTHOR AUTHOR'S ORGANIZ ATION 04/07/2020 [facility] DATE CREATED AUTHOR AUTHOR'S ORGANIZ ATION 03/18/2021 [facility] DATE CREATED AUTHOR AUTHOR'S ORGANIZ ATION 06/08/2021 [facility] DATE CREATED AUTHOR AUTHOR'S ORGANIZ ATION 07/24/2021 [facility] DATE CREATED AUTHOR AUTHOR'S ORGANIZ ATION 12/27/2023 [facility] DATE CREATED AUTHOR AUTHOR'S ORGANIZ ATION 07/23/2024 [facility] DATE CREATED AUTHOR AUTHOR'S ORGANIZ ATION 11/25/2024 [facility] EPIC REASON FOR VISIT (unrecogniz ed section and content) ReasonCommentsDysmenorrheaPelvic PainContraceptionReasonCommentsContraception ReasonCommentsPelvic PainUrinary FrequencyReasonCommentsPre-op Visit Care Teams (unrecognized sec tion and content) Team Status: Active Member Role Status Dates Torrie Peres DO Primary Care Provider Active Team Status: Inactive Member Role Status Dates Torrie Peres DO Primary Care Provider Active Start: September 13, 2023 End: September 14, 2023Jewel Cunha MDEmelis[facility] ProviderActiveStart: September 13, 2023 End: September 14, 2023 Team Status: Inactive Member Role Status Dates Torrie Peres DO Primary Care Provider Active Start: December 18, 2023 End: December 17OLIVIA Kidd-Kurtis ProviderActiveStart: December 18, 2023 End: December 18, 2023Team MemberRelationshipSpecialtyStart DateEnd Date Torrie Peres DO [address] [place] [address] PCP - GeneralInternal Medicine07/22/22 Torrie Peres DO [address] [place] [address] PCP - Medical [place] [employer]03/16/2411 Dr. Forte Consulting PhysicianCardiology11/05/17Team MemberRelationshipSpecialtyStart Date End Date Torrie Peres DO [address] [place] [address] PCP - GeneralInternal Medicine07/22/22 Torrie Peres, DO [address] [place] [address] PCP - Medical [place] [employer]03/16/2411 Dr. Forte Consulting PhysicianCardiology11/05/17Team MemberRelationshipSpecialtyStart Date End Date Torrie Peres, DO [address] [place] [address] PCP - GeneralInternal Medicine07/22/22 Torrie Peres, DO [address] [place] [address] PCP - Medical [place] [employer]03/16/2411 Dr. Forte Consulting PhysicianCardiology11/05/17Team MemberRelationshipSpecialtyStart Date End Date Torrie Peres, DO [address] [place] [address] PCP - GeneralInternal Medicine07/22/22 Torrie Peres, DO [address] [place] [address] PCP - Medical [place] [employer]03/16/2411 Dr. Forte Consulting PhysicianCardiology11/05/17Team MemberRelationshipSpecialtyStart Date End Date Torrie Peres, DO [address] [place] [address] PCP - GeneralInternal Medicine07/22/22 Torrie Peres, DO [address] [place] [address] PCP - Medical [place] [employer]03/16/2411 Dr. Forte Consulting PhysicianCardiology11/05/17Team MemberRelationshipSpecialtyStart Date End Date Torrie Peres, DO [address] [place] [address] PCP - GeneralInternal Medicine07/22/22 Torrie Peres, DO [address] [place] [address] PCP - Medical [place] [employer]03/16/2411 Dr. Forte Consulting PhysicianCardiology11/05/17Team MemberRelationshipSpecialtyStart Date End Date Torrie Peres, DO [address] [place] [address] PCP - GeneralInternal Medicine and Pediatrics11/01/20Team MemberRelationship SpecialtyStart DateEnd Date Torrie Peres DO [address] [place] [address] PCP - GeneralInternal Medicine07/22/22 Torrie Peres, DO [address] [place] [address] PCP - Medical [place] [employer]03/16/2411 Dr. Forte Consulting PhysicianCardiology11/05/17 Goals (unrecognized section and content) Goals may be documented in a n alternate section FOR RECORDS PERTAINING TO PATIENTS WHO ARE OR HAVE BEEN ENROLLED IN A CHEMICAL DEPENDENCY/SUBSTANCEABUSE PROGRAM, SOME INFORMATION MAY BE OMITTED. This clinical summary was aggregated from multiple sources. Caution should be exercised in using it in the provision of clinical care. This summary normalizes information from multiple sources, and as a consequence, information in this document may materially change the coding, format and clinical context of patient data. In addition, data may be omitted in some cases. CLINICAL DECISIONS SHOULD BE BASED ON THE PRIMARY CLINICAL RECORDS. [facility]. provides no warranty or guarantee of the accuracy or completeness of information in this document.
--- OUTSIDE RECORDS SUMMARY | 2025-01-25 20:03 | XMS_ITS | Clinical Summary ---
[facility] [place] [address] Care Team Providers Care Automatic Blocker Name Role Phone Torrie Peres DO Primary Care Provider Allergies No known active allergies Medications MedicationSigDispense QuantityRefillsLast FilledStart DateEnd DateStatus norgestimate-ethinyl estradiol (ORTHO-CYCLEN) 0.25-35 MG-MCG per tablet 1 ykxjaa6001/10/2020Active rizatriptan (MAXALT-WAITER/WAITRESS BAR) [address] inside cheek and allow to dissolve onceActive Sirmqkz-Ogsxmvexyavxi-Vqhpjbjf (EXCEDRIN EXTRA STRENGTH) 250-250-65 MG TABS Take by mouthActive Norethin Jayme-Eth Estrad-FE ( PO) Take by mouthActive citalopram (CELEXA) 10 MG tablet Take by mouth dailyActive Active Problems ProblemNoted DateDiagnosed DateVT (ventricular tachycardia)08/11/2024 Asymptomatic PVCs06/16/2024ounseling for transition from pediatric to adult model of care01/28/2023 Overview (01/28/2023): [facility] 10/23/2022 Migraine with aura, not intractable, without status mfnzcppefzo10/10/2023 Overview (06/16/2024): ~2/month She uses Maxalt for symptom relief Bicuspid aortic valve10/25/2020xcessive and frequent tvhcuvwwvabe05/12/2021 Congenital insufficiency of aortic valve10/25/2020oarctation of aorta (preductal) (postductal)04/13/2015 Family History Medical HistoryRelationCommentsHypertensionFatherArrhythmiaMaternal Grandfather VTHeart DiseaseMaternal GrandfatherMVRHypertensionMaternal GrandfatherArrhythmia Maternal GrandmotherA FIBHigh CholesterolMaternal GrandmotherHypertension Maternal GrandmotherNo known problemsMotherHeart AttackPaternal Grandfather MASSIVE OR, IN SLEEPCancerPaternal GrandmotherHypertensionPaternal GrandmotherNo known problemsSister 1AsthmaSister 2RelationStatusCommentsFather AliveMaternal GrandfatherAliveMaternal GrandmotherAliveMotherAlivePaternal GrandfatherDeceasedPaternal GrandmotherDeceasedSister 1AliveSister 2Alive Social History Tobacco UseTypesPacks/DayYears UsedDateSmoking Tobacco: NeverPassive Smoke Exposure: NeverSmokeless Tobacco: Never Tobacco Cessation:Counseling Given: Not Answered Alcohol UseStandard Drinks/WeekCommentsNo0 (1 standard drink = 0.6 oz pure alcohol)CommentsUnknownSex and Gender InformationValueDate RecordedSex Assigned at BirthNot on fileLegal QtiMkspjh09/20/2012 4:38 PM ESTGender Identity Not on fileSexual OrientationNot on file Last Filed Vital Signs Vital SignReadingTime TakenCommentsBlood Sxrabwyt326/6704 10:28 AM EDT Chcxp1024 10:28 AM WDDWpsgqofbjmx13.4 ??C (97.5 ??F)06/29/2015 12:00 PM EDTRespiratory Krcf155206/16/2024 10:20 AM EDTOxygen Rkrhpmcnsc274%06/16/2024 10:20 AM EDTInhaled Oxygen Concentration--Hymdps38.7 kg (175 lb 11.3 oz) 06/16/2024 10:20 AM EDTW/ David.Pcxnec974.3 cm (5' 2.72 )06/16/2024 10:20 AM EDTBody Mass Index31.41006/16/2024 10:20 AM EDT Plan of Treatment Health MaintenanceDue DateLast DoneCommentsMenB (1 of 2 - MenB 2-Dose Series Bexsero)2017Pap Smear2022Tetanus Diphtheria and Pertussis Vaccines (7 - Td or Tdap), 11/01/2007, 06/09/2003, Additional history existsCOVID-19 (3 - season)/, 12/18/2020FLU (#1) , 01/05/2012Hepatitis XJsbdiqclq19/04/2003, 03/23/2002, 02/16/20023605SRLCwdnbvybv34/26/2004, 06/17/2002, 03/23/2002, Additional history existsPneumococcalAged Out06/09/2003, 01/02/2003No longer eligible based on patient's age to complete this suislJYMCcqtwwxfj02/18/2008, 11/11/2002Polio Epgrhkgyw66/18/2008, 06/17/2002, 03/23/2002, Additional history existsVaricella Ceixogotn20/18/2008, 11/11/20022676MCGDqynkifwu96/21/2014, 01/05/2012, 11/05/2011 Hepatitis YAzfomzezy33/21/2014, 11/05/20113790EqzTSQTRmmdzorex38/27/2020, 10/03/2013 NirsevimabAged OutNo longer eligible based on patient's age to complete this topicRotavirusAged OutNo longer eligible based on patient's age to complete this topic Insurance MemberSubscriberPlan / Payer (Effective 2022-Present)Name:BENJI TAYLOR Relation to Subscriber:ChildName:GONZALO JUSTICE Date of :1975 (Home) Address: [address] [place], [place] [id number] Payer ID:[id number] Type:Not on file Address: [address] [place] [id number] Care Teams Team MemberRelationshipSpecialtyStart DateEnd Date Constantin-Torrie Em DO [address] [facility] [address] [place] [address] PCP - GeneralInternal Medicine and Pediatrics11/01/20
--- OUTSIDE RECORDS SUMMARY | 2025-01-25 20:03 | XMS_ITS | Clinical Summary ---
Author Organization [facility] Address [address] [place] [address] Care Team Providers Care Field Hockey Coach Name Role Phone Torrie Peres DO Primary Care Provider Linda Cisneros Unavailable Allergies Active AllergyReactionsCriticalityNoted DateCommentsRizatriptanPalpitations Aqrduy4311/05/20220565UfocthxbmiLssdmr36/17/2023 Other Reaction(s): Hair loss Medications MedicationSigDispense QuantityRefillsLast FilledStart DateEnd DateStatus Levonorg-Eth Estr, Transderm, (Twirla) 120-30 MCG/24HR patch weekly Indications:Well woman exam with routine gynecological exam, control counselingPlace 1 patch on the skin 1 (one) time per week for 28 days Apply 1 patch each week for 3 weeks, then remove for 1 week. 3 patch [id number]//[id number] desogestrel-ethinyl estradiol (Apri) 0.15-30 MG-MCG tablet Indications:Menorrhagia with regular cycleTake 1 tablet by mouth Daily for 28 days Take 1 tablet by mouth daily 28 tablet 1105//89535003/27/2024Discontinued(Therapy completed) levonorgestrel-ethinyl estradiol (Jolessa) 0.15-0.03 MG tablet Indications: control counselingTake 1 tablet by mouth Daily Take 1 tablet by mouth daily 84 tablet 309/10/063810/02/2025Discontinued(Ineffective) Active Problems ProblemNoted DateDiagnosed DateBicuspid aortic valve determined by imaging ([facility])10/23/2022 Overview (10/23/2022): She has been following with (pediatric) Brazer Assembler- Dr Monet. Last seen 10/2022. ECHO ordered Incomplete RBBB10/23/2022Migraine with aura, not intractable, without status zhkbtrxhfwa90/10/2023 Overview (10/23/2022): ~2/month She uses Maxalt for symptom relief Assessment & Plan (01/04/2023 9:51 PM EDT): Would give trial of Ubrelvy or Nurtec to see if one or the other seems to work better for her (or which may be covered by her insurance) Heart sutybhfhmjoc18/10/2023 Overview (10/23/2022): -Started ~09/2022. When she saw her Brazer Assembler (Dr Forte) in October, a heart monitor was ordered Encounters DateTypeDepartmentCare ClggKnqgfmnnfyk36/12/2025 2:00 PM ESTProcedure Visit [facility] [address] [facility] [place] [address] Linda Cisneros PA control counseling (Primary Dx); Well woman exam with routine gynecological exam01/25/2025amboo flowsheet [facility] [place] [address] [facility] [place] [address] Linda Cisneros PA 12/27/2024Telephone [facility] [place] [address] [facility] [place] [address] Linda Cisneros PA 11/23/2024 8:40 AM EDTOffice Visit [facility] [address] [place] [address] Linda Cisneros PA control arhidspjeg62/10/2025Bamboo flowsheet [facility] [address] [place] [address] [place] [address] Linda Cisneros PA from Last 3 Months Immunizations ImmunizationAdministration DatesNext DueHPV, Ouxqlyrnawnl51/21/2014,01/05/2012, 11/05/2011Meningococcal OAG3H9401/10/2020,10/03/2013Pneumococcal, Unspecified 06/09/2003,01/02/2003Tdap10/03/20130136Gpyrcaxuw60/18/2008,11/11/2002 Family History Medical HistoryRelationNameCommentsHypertensionFatherNo Known ProblemsMotherNo Known ProblemsSisterRelationNameStatusCommentsFatherAliveMotherAliveSister2 Social History Tobacco UseTypesPacks/DayYears UsedDateSmoking Tobacco: NeverSmokeless [...] InformationValueDate RecordedSex Assigned at BirthNot on fileLegal HdlMcyofk56/15/2023 10:59 PM EDT Gender IdentityNot on fileSexual OrientationNot on fileOccupationIndustryJob Start DateJob End Dateworks at pharmacyNot on fileNot on fileNot on file Last Filed Vital Signs Vital SignReadingTime TakenCommentsBlood Gdfhtijm823/7201/25/2025 2:14 PM EST Wdgvk415811/05/2022 10:10 AM EDTTemperature--Respiratory Rate--Oxygen Saturation 99%11/05/2022 10:10 AM EDTInhaled Oxygen Concentration--Lnjnrd88.9 kg (174 lb) 01/25/2025 2:14 PM DLMVsnanr615 cm (5' 3 )01/25/2025 2:14 PM ESTBody Mass Index 30.8201/25/2025 2:14 PM EST Plan of Treatment Health MaintenanceDue DateLast DoneCommentsPneumococcal Vaccine: Pediatrics (0 to 5 Years) and At-Risk Patients (6 to 64 Years) (1 of 2 - PCV)2020 06/09/2003, 01/02/2003COVID-19 Vaccine (3 - season), 12/18/2020Influenza Vaccine (#1), 01/05/2012 Insurance Care Teams Team MemberRelationshipSpecialtyStart DateEnd Date Torrie Peres DO [address] [place] [address] PCP - GeneralInternal Medicine07/22/22 Linda Cisneros PA [address] [facility] [facility] [address] [place], [place] [address] PCP - Medical [place] [employer]03/16/2411 Dr. Forte Consulting PhysicianCardiology11/05/17
--- OUTSIDE RECORDS SUMMARY | 2025-01-25 20:03 | XMS_ITS | Encounter Summary ---
Author Organization [facility] Address [address] [facility] [place] [address] Care Team Providers Care Enzyme Chemist Name Role Phone Torrie Peres DO Primary Care Provider Linda Cisneros Unavailable Encounter Details DateTypeDepartmentCare Team (Latest Contact Info)Vmmmllebzni73/12/2025Bamboo flowsheet [facility] [place] [address] [place] [address] Linda Cisneros PA [address] [place] [id number] Social History Tobacco UseTypesPacks/DayYears UsedDateSmoking Tobacco: NeverSmokeless [...] InformationValueDate RecordedSex Assigned at BirthNot on fileLegal EmiKeviuq03/15/2023 10:59 PM EDT Gender IdentityNot on fileSexual OrientationNot on fileOccupationIndustryJob Start DateJob End Dateworks at pharmacyNot on fileNot on fileNot on file documented as of this encounter Plan of Treatment Not on file documented as of this encounter Visit Diagnoses Not on filedocumented in this encounter Care Teams Team MemberRelationshipSpecialtyStart DateEnd Date Constantin-Torrie Em DO [address] [place] [address] PCP - GeneralInternal Medicine07/22/22 Linda Cisneros PA [address] [place] [address] PCP - Medical [place] [employer]03/16/2411 Dr. Forte Consulting PhysicianCardiology11/05/17documented as of this encounter
--- OUTSIDE RECORDS SUMMARY | 2025-01-25 20:03 | XMS_ITS | Clinical Summary ---
Author Organization [facility] Address [address] [place] [address] Phone Care Team Providers Care Mechanical Design Engineer Name Role Phone Torrie Peres DO Primary Care Provi elis Social History Tobacco UseTypesPacks/DayYears UsedDateSmoking Tobacco: Never Assessed CommentsUnknownSex and Gender InformationValueDate RecordedSex Assigned at Not on fileLegal TdiUxlbhj83/26/2022 5:58 PM ESTGender IdentityNot on fileSexual OrientationNot on file Plan of Treatment Not on file Care Teams Team MemberRelationshipSpecialtyStart DateEnd Date Torrie Peres DO [address] [place] [address] PCP - [facility]11/26/20
== END 2025-01-25 19:59 | disposition home or self-care (01) ==
LOC: LAB 19:58
PROVIDERS: PCP Family Medicine; Visit Provider Physician Assistant
DX: Z01.419 Encounter for gynecological examination (general) (routine) without abnormal findings (principal)
CPT/HCPCS: 88175